=== PATIENT | female | born 1985 | race Caucasian/White ===

== ENCOUNTER 2019-08-23 21:12 | Emergency (ER) | payer MEDICAID, SELFPAY ==
[2019-08-23 21:14] VITALS: BP 165/105; PULSE 99; RESP 22; TEMP 36.5; O2SAT 97
[2019-08-23 21:40] VITALS: O2SAT 96
[2019-08-23] MEDS: ALBUTEROL 2.5 MG/3 ML NEB (ADULT) INH ×3 (21:44→22:54)
--- NOTE | 2019-08-23 21:55 | ED.URI ---
HPI - URI/Sore Throat General Chief Complaint: Upper Respiratory Symptoms Stated Complaint: Asthma attack Time Seen by Provider: 08/23/19 21:55 Source: patient and EMS Limitations: no limitations History of Present Illness HPI Narrative: The patient has allergies and asthma. She has been off her inhaler for about 6 weeks, her inhalers are empty. Symptoms increased over the past 2 weeks. She has had ear discomfort, sinus pressure, cough and sore throat. She has no fever or chills. She is a cigarette smoker, but not over the last 2 weeks while ill. Symptoms escalate again today. She now is having wheezing with increased difficulty breathing. She has no associated chest pain. She has no GI symptoms. Related Data Previous Rx's Medication Instructions Recorded doxycycline hyclate 100 mg PO BID 10 Days #20 tab 08/24/19 prednisone 60 mg PO BID 5 Days #15 tab 08/24/19 Allergies Allergy/AdvReac Type Severity Reaction Status Date / Time No Known Drug Allergies Allergy Verified 08/23/19 21:25 Review of Systems Review of Systems ROS Unobtainable: All systems reviewed & are unremarkable except as noted in HPI and below Constitutional Constitutional: Denies chills, Denies fever(s), Denies headache(s), Denies lethargy and Denies weakness Eyes Eyes: Denies eye discharge ENT Ears, Nose, Mouth, and Throat: Denies dizziness, Denies headache(s), Denies neck pain and Denies sore throat Cardiovascular Cardiovascular: Denies chest pain, Denies irregular heart rhythm, Denies lightheadedness, Denies palpitations, Reports dyspnea and Denies orthopnea Respiratory Respiratory: Reports cough, Reports dyspnea and Reports wheezing Gastrointestinal Gastrointestinal: Denies abdominal pain, Denies diarrhea, Denies nausea and Denies vomiting Musculoskeletal Musculoskeletal: Denies back pain and Denies neck pain Integumentary/Breasts Skin/Breast: Denies pruritus, Denies erythema, Denies rash and Denies wounds Neurologic Neurologic: Denies dizziness, Denies headache(s) and Denies weakness Endocrine Endocrine: Denies palpitations Allergic/Immunologic Allergic/Immunologic: Reports wheezing Patient History Medical History (Updated 08/24/19 @ 00:20 by Carlos Luu MD) Asthma (Acute) Surgical History (Updated 08/24/19 @ 00:16 by Carlos Luu MD) No significant past surgical history (Acute) Social History (Updated 08/24/19 @ 00:16 by Carlos Luu MD) Smoking Status: Current some day smoker Exam Initial Vital Signs Initial Vital Signs: Vital Signs Temperature 97.7 F 08/23/19 21:14 Pulse Rate 99 H 08/23/19 21:14 Respiratory Rate 22 08/23/19 21:14 Blood Pressure 165/105 H 08/23/19 21:14 Pulse Oximetry 97 08/23/19 21:14 Const General: cooperative and well developed Nutritional Appearance: well nourished HENMT Ears: other (Yellow fluid behind both TMs, no erythema.) Nose: nares normal Face and sinus: sinus tenderness ethmoid (Bilateral) Mouth: oral mucosae normal Throat: posterior oropharynx normal Neck Neck: No lymphadenopathy Resp Auscultation: wheezes scattered wheezes (Bilateral) Cardio Rate: regular rate Rhythm: regular rhythm Heart Sounds: S1 normal, S2 normal, no click, no gallops, no murmurs and no rubs Pulses: normal peripheral pulses GI Inspection: non-distended Palpation: soft, no hepatosplenomegaly, No guarding and No tender Auscultation: normal bowel sounds Skin General: no rashes or lesions noted Neuro General: alert, oriented x3, gait normal and no focal motor deficits Speech: speech normal Extrem General: No edema Course Course Course Narrative: The patient has sinus nurse. She was started on doxycycline. She has wheezing throughout. Multiple nebs were given. She was given prednisone. At the time of discharge, cough and wheezing have resolved. She will be discharged on doxycycline, albuterol and prednisone. She is advised to quit smoking. Orders Ordered: Albuterol (Ventolin) 2.5 mg INH NOW PRN PRN Reason: Wheezing Last Admin: 08/23/19 22:54 Dose: 2.5 mg Documented by: Admin: 08/23/19 21:51 Dose: 2.5 mg Documented by: Admin: 08/23/19 21:44 Dose: 2.5 mg Documented by: RAFAT Discontinued Medications Albuterol (Ventolin Hfa Prepack) 1 box MISC SEEINSTR ONE Stop: 08/24/19 00:03 Cefazolin Sodium (Ancef Vial) 2 gm IV NOW ONE Stop: 08/23/19 22:19 Last Admin: 08/23/19 22:53 Dose: Not Given Documented by: KELVIN Doxycycline Hyclate (Vibramycin) 100 mg PO NOW ONE Stop: 08/23/19 22:49 Last Admin: 08/23/19 22:54 Dose: 100 mg Documented by: KELVIN Prednisone (Deltasone) 60 mg PO NOW ONE Stop: 08/23/19 21:57 Last Admin: 08/23/19 22:15 Dose: 60 mg Documented by: KELVIN Vital Signs Vital signs: Vital Signs - 8 hr 08/23/19 21:14 08/23/19 21:40 Temperature 97.7 F Pulse Rate 99 H Respiratory Rate 22 Blood Pressure 165/105 H Pulse Oximetry 97 96 Discharge Plan Departure Patient Disposition: Home Clinical Impression: Sinusitis Qualifiers: Sinusitis location: ethmoidal Chronicity: acute Recurrence: non-recurrent Qualified Code(s): J01.20 - Acute ethmoidal sinusitis, unspecified Asthma Qualifiers: Asthma severity: moderate Asthma persistence: persistent Asthma complication type: unspecified Qualified Code(s): J45.40 - Moderate persistent asthma, uncomplicated Instructions: Asthma -- Adult, DI for Sinusitis Activity Restrictions/Additional Instructions: Doxycycline 2 times daily, this is the antibiotic. Albuterol 2 puffs every 4 hours as needed for wheezing/cough. Prednisone x5 days as prescribed. I recommend you stop smoking. Return the ER as needed. Prescriptions: New doxycycline hyclate 100 mg tablet,delayed release (DR/EC) 100 mg PO BID 10 Days Qty: 20 RF: 0 prednisone 20 mg tablet 60 mg PO BID 5 Days Qty: 15 RF: 0
[2019-08-23] MEDS: predniSONE 20 MG TABLET 60 MG PO (22:15)
[2019-08-23] MEDS: DOXYCYCLINE HYCLATE 100 MG TABLET PO (22:54)
[2019-08-24] MEDS: ALBUTEROL HFA PREPACK 1 BOX MISC (00:21)
[2019-08-24 00:31] VITALS: BP 143/97; PULSE 99; RESP 16; O2SAT 96
--- NOTE | 2019-08-26 16:12 | PC.NURSE ---
[facility]. Discussed w/ Dr. Blount who clarified prescriptions to Prednisone 60 mg po daily x 5 days & Doxycycline 100 mg po bid x 10 days.
== END 2019-08-24 00:31 | disposition home or self-care (01) ==
PROVIDERS: Emergency Provider Emergency Medicine
DX: J01.20 Acute ethmoidal sinusitis, unspecified (principal); J45.40 Moderate persistent asthma, uncomplicated
CPT/HCPCS: 94150; 94640; 99284; J7613

== ENCOUNTER 2019-09-10 18:38 | Inpatient (IN) | payer OTHER, MEDICAID, SELFPAY ==
[2019-09-10] VITALS (10 sets, daily range): BP systolic 147–191; BP diastolic 89–126; PULSE 99–121; RESP 14–28; TEMP 37–37.3; O2SAT 92–96
--- NOTE | 2019-09-10 18:49 | DI.RAD.S_ITS ---
PROCEDURE: XR CHEST 1V INDICATIONS: wheeze, cough, fever TECHNIQUE: One view of the chest was acquired. COMPARISON: None. FINDINGS: Surgical changes and devices: None. Lungs and pleura: Lungs are clear. No pleural effusions or pneumothorax. Mediastinum: Mediastinal contours appear normal. Heart size is normal. Bones and chest wall: No suspicious bony lesions. Overlying soft tissues appear unremarkable. IMPRESSION: No acute disease Dictated by: Capo Cohen M.D. on 09/10/2019 at 20:16 Approved by: Capo Cohen M.D. on 09/10/2019 at 20:16
--- NOTE | 2019-09-10 18:51 | ED.SOB ---
HPI - SOB/Dyspnea General Chief Complaint: Shortness of Breath/Dyspnea Stated Complaint: increased shortness of breath/ wheezing. Time Seen by Provider: 09/10/19 18:38 History of Present Illness HPI Narrative: 34-year-old patient with moderate persistent asthma, anxiety, depression, PTSD, hypertension, and reflux with increasing asthma symptoms over the last week. She was seen in this emergency room on August 23 and diagnosed with acute bacterial ethmoid all sinusitis and treated with prednisone (60 mg for 5 days) and doxycycline for 10 days. She felt that the prednisone made a significant difference. One. Her cough and wheeze has again progressed. She states that she is using her inhalers up to 30 times today and is still quite short of breath. She feels that she has had subjective fevers and chills over the last couple of days. Denies headache, nausea, vomiting, diarrhea. Today she notes that she is having trouble even moving about her trailer due to severe dyspnea. Upon arrival she has received DuoNeb by medics and is able to speak in full sentences. She is using accessory muscles. She notes that she has been smoking very little over the last month because of her respiratory issues. She also notes that she has not taken medications for any of her psychiatric issues normal blood pressure for at least a year. She denies chest pain aside from wheeze, no lower extremity edema, no abdominal pain, flank pain, dysuria. Related Data Home Medications Medication Instructions Recorded Confirmed albuterol sulfate [ProAir HFA] 2 puff INHALATION Q4HR PRN 09/10/19 09/10/19 duloxetine 60 mg PO DAILY 09/10/19 09/10/19 esomeprazole magnesium 40 mg PO DAILY 09/10/19 09/10/19 ipratropium-albuterol [Combivent 1 spray INHALATION QID 09/10/19 09/10/19 Respimat] lisinopril 10 mg PO BID 09/10/19 09/10/19 metformin 500 mg PO QAM 09/10/19 09/10/19 montelukast 10 mg PO BEDTIME 09/10/19 09/10/19 topiramate 50 mg PO BID 09/10/19 09/10/19 Allergies Allergy/AdvReac Type Severity Reaction Status Date / Time Penicillins AdvReac Intermediate Vomiting Verified 02/01/20 18:46 Review of Systems Review of Systems Narrative: States that she had her Mirena taken out about a year ago after 6 months of dysfunctional bleeding. She was given ?something else for a couple months? and the bleeding has stopped. Has not had a period since then. Is not currently sexually active All systems reviewed and are unremarkable except as noted in HPI and below Patient History Medical History Acid reflux (Acute) Anxiety (Acute) Asthma (Acute) Depression (Acute) Hypertension (Acute) Morbid (severe) obesity with alveolar hypoventilation (Acute) PTSD (post-traumatic stress disorder) (Acute) Surgical History No significant past surgical history (Acute) Family History Father Diabetes mellitus Mother Hypertension Arrhythmia Grandfather Colon cancer CAD (coronary artery disease) Social History (Updated 08/24/19 @ 00:16 by Carlos Luu MD) household members: significant other Smoking Status: Current some day smoker Smoking Status: Current some day smoker tobacco type: cigarettes alcohol intake frequency: 0-2 drinks per day Substance Use Type: does not use Exam Narrative Exam Narrative: General: Mild respiratory distress distress. Able to speak in full sentences and give a complete and coherent history. Well-nourished well-developed HEENT: Moist mucous membranes, normal sclera with reactive pupils, Neck: No JVD, supple Respiratory: Lungs with diffuse wheeze in all lung reyes no rales no rhonchi. Diminished but symmetrical air movement Cardiac: Regular rate and rhythm no murmurs no bruits Abdomen: Soft nontender good bowel tones, no flank pain Skin: Warm and dry, no rashes Neurologic: Grossly neurologically intact with no obvious asymmetries or abnormalities Extremities: No trauma, well perfused. No edema Psych: Cooperative, appropriate insight and affect Initial Vital Signs Initial Vital Signs: Vital Signs Temperature 98.9 F 09/10/19 18:38 Pulse Rate 120 H 09/10/19 18:38 Respiratory Rate 28 H 09/10/19 18:38 Blood Pressure 191/126 H 09/10/19 18:38 Pulse Oximetry 95 09/10/19 18:38 Course Course Course Narrative: On initial presentation she is quite wheezy but moving air moderately well. Given a 2nd DuoNeb and then 10 mg of nebulized albuterol. Initial blood pressure is significantly elevated however I suspect that as she hasn't been taking her lisinopril this been going on for a while. As she is currently not having any chest pain will not acutely medicate that further but will follow-up through her emergency room visit Orders Ordered: ED Orders 09/10/19 20:13 Flu test [Influenza A & B (PCR)] Stat 09/10/19 22:19 CT angio chest PE protocol Stat Acetaminophen (Tylenol) 650 mg PO Q6HR PRN PRN Reason: Fever/Mild Pain (1-3) Albuterol (Ventolin) 2.5 mg INH RTQ4HR [facility] Last Admin: 09/11/19 02:22 Dose: 2.5 mg Documented by: ANUSHA Albuterol/Ipratropium (Duoneb) 3 ml INH Q4HR [facility] Last Admin: 09/11/19 03:52 Dose: 3 ml Documented by: ANUSHA Heparin Sodium (Porcine) (Heparin) 5,000 unit SUBCUT BID [facility] Last Admin: 09/11/19 01:13 Dose: 5,000 unit Documented by: SCOUT Sodium Chloride (Normal Saline 0.45%) 1,000 mls @ 150 mls/hr IV CONT [facility] Last Admin: 09/11/19 02:14 Dose: 150 mls/hr Documented by: SCOUT Lisinopril (Zestril) 10 mg PO BID [facility] Last Admin: 09/11/19 03:45 Dose: 10 mg Documented by: SCOUT Methylprednisolone (Solu-Medrol 125 Mg Vial) 125 mg IV DAILY [facility] Stop: 09/12/19 08:59 Naloxone HCl (Narcan) 0.2 mg IV Q2MIN PRN PRN Reason: Opiate Reversal Ondansetron HCl (Zofran) 4 mg IV Q8HR PRN PRN Reason: Nausea And Vomiting Discontinued Medications Albuterol (Ventolin) 10 mg INH NOW ONE Stop: 09/10/19 18:59 Last Admin: 09/10/19 19:01 Dose: 10 mg Documented by: CARLOS Albuterol (Ventolin) 2.5 mg INH NOW ONE Stop: 09/10/19 22:03 Last Admin: 09/10/19 22:06 Dose: 2.5 mg Documented by: ANUSHA Albuterol (Ventolin) 2.5 mg INH [id number] SAIGE Albuterol/Ipratropium (Duoneb) 3 ml INH NOW ONE Stop: 09/10/19 18:48 Last Admin: 09/10/19 18:53 Dose: 3 ml Documented by: CARLOS Albuterol/Ipratropium (Duoneb) 3 ml INH RTBID SAIGE Sodium Chloride (Normal Saline 0.9%) 1,000 mls @ 1,000 mls/hr IV BOLUS ONE Stop: 09/10/19 19:46 Last Infusion: 09/10/19 20:00 Dose: 0 mls/hr Documented by: Admin: 09/10/19 18:55 Dose: 1,000 mls/hr Documented by: SUNSHINE Methylprednisolone (Solu-Medrol 125 Mg Vial) 125 mg IV NOW ONE Stop: 09/10/19 18:48 Last Admin: 09/10/19 18:55 Dose: 125 mg Documented by: SUNSHINE Vital Signs Vital signs: Vital Signs - 8 hr 09/10/19 21:15 09/10/19 21:26 09/10/19 22:06 Temperature 98.6 F Pulse Rate 109 H 115 H Respiratory Rate 20 Blood Pressure [Left Arm] 180/98 H Pulse Oximetry 92 95 09/10/19 22:47 Temperature Pulse Rate 121 H Respiratory Rate Blood Pressure [Left Arm] 147/89 H Pulse Oximetry 93 MDM - SOB/Dyspnea Differential Diagnosis Differential diagnosis: Likely asthma with exacerbation Medical Records Attestation: I reviewed the patient's medical records. Lab Data Attestation: I reviewed the patient's lab results. Result diagrams: 09/10/19 19:32 09/10/19 19:32 Labs: Lab Results 09/10/19 09/10/19 09/10/19 Range/Units 19:06 19:32 19:32 WBC 10.7 (4.5-11.0) X10^3/uL RBC 4.88 (4.0-5.2) X10^6/uL Hgb 16.0 (12.0-16.0) g/dL Hct 45.2 (36-46) % MCV 92.6 (80-100) fL MCH 32.8 (26-34) PG MCHC 35.5 (30-36) % RDW 13.2 (11.6-14.8) % Plt Count 252 (150-400) X10^3/uL Neut % (Auto) 70.9 (50-75) % Lymph % (Auto) 14.9 L (25-40) % Ray % (Auto) 5.3 (3-14) % Eos % (Auto) 8.2 H (2-4) % Baso % (Auto) 0.7 (0-2) % Neut # (Auto) 7600 H (4668-6675) /uL Lymph # (Auto) 1600 (2679-2885) /uL Ray # (Auto) 600 (0-900) /uL Eos # (Auto) 900 H (0-450) /uL Baso # (Auto) 100 (0-100) /uL D-Dimer 331 H (<230) ng/mL ABG pH 7.40 (7.35-7.45) ABG pCO2 35.0 (35-45) mmHg ABG pO2 60 L (80-100) mmHg ABG HCO3 22 (22-26) mmol/L ABG Total CO2 23 (21-31) mmol/L ABG O2 Saturation 91 L (95-100) % ABG Base Excess -3.0 L (-2-2) mmol/L FiO2 21 Sodium (137-145) mmol/L Potassium (3.4-5.1) mmol/L Chloride (98-107) mmol/L Carbon Dioxide (22-32) mmol/L BUN (7-17) mg/dL Creatinine (0.52-1.04) mg/dL Estimated GFR (>60) mL/min BUN/Creatinine Ratio (6-22) Glucose (70-100) mg/dL Lactate (0.7-2.1) mmol/L Calcium (8.4-10.2) mg/dL Total Bilirubin (0.2-1.3) mg/dL AST (14-36) IU/L ALT (<35) IU/L Alkaline Phosphatase (38-126) U/L Troponin I (0.01-0.034) ng/mL Total Protein (6.3-8.2) g/dL Albumin (3.5-5.0) g/dL Globulin (1.7-4.1) g/dL Albumin/Globulin Ratio (1.0-2.8) Influenza A (RT-PCR) (NEGATIVE) Influenza B (RT-PCR) (NEGATIVE) 09/10/19 09/10/19 09/10/19 Range/Units 19:32 19:32 20:13 WBC (4.5-11.0) X10^3/uL RBC (4.0-5.2) X10^6/uL Hgb (12.0-16.0) g/dL Hct (36-46) % MCV (80-100) fL MCH (26-34) PG MCHC (30-36) % RDW (11.6-14.8) % Plt Count (150-400) X10^3/uL Neut % (Auto) (50-75) % Lymph % (Auto) (25-40) % Ray % (Auto) (3-14) % Eos % (Auto) (2-4) % Baso % (Auto) (0-2) % Neut # (Auto) (5085-9841) /uL Lymph # (Auto) (8715-4792) /uL Ray # (Auto) (0-900) /uL Eos # (Auto) (0-450) /uL Baso # (Auto) (0-100) /uL D-Dimer (<230) ng/mL ABG pH (7.35-7.45) ABG pCO2 (35-45) mmHg ABG pO2 (80-100) mmHg ABG HCO3 (22-26) mmol/L ABG Total CO2 (21-31) mmol/L ABG O2 Saturation (95-100) % ABG Base Excess (-2-2) mmol/L FiO2 Sodium 138 (137-145) mmol/L Potassium 3.6 (3.4-5.1) mmol/L Chloride 102 (98-107) mmol/L Carbon Dioxide 25 (22-32) mmol/L BUN 6 L (7-17) mg/dL Creatinine 0.80 (0.52-1.04) mg/dL Estimated GFR > 60.0 (>60) mL/min BUN/Creatinine Ratio 7.5 (6-22) Glucose 132 H (70-100) mg/dL Lactate 1.4 (0.7-2.1) mmol/L Calcium 9.5 (8.4-10.2) mg/dL Total Bilirubin 0.8 (0.2-1.3) mg/dL AST 27 (14-36) IU/L ALT 23 (<35) IU/L Alkaline Phosphatase 75 (38-126) U/L Troponin I < 0.012 (0.01-0.034) ng/mL Total Protein 8.4 H (6.3-8.2) g/dL Albumin 4.8 (3.5-5.0) g/dL Globulin 3.6 (1.7-4.1) g/dL Albumin/Globulin Ratio 1.3 (1.0-2.8) Influenza A (RT-PCR) Flu a negative (NEGATIVE) Influenza B (RT-PCR) Flu b negative (NEGATIVE) ABG Data ABG results: PH is 7.4/CO2 35/0-60 (91%) on room air/ base excess -3/bicarb 22 Imaging Data Chest x-ray: Attestation: I personally reviewed and interpreted this imaging study as follows: Radiologist's Impression: IMPRESSION: No acute disease Dictated by: Capo Cohen M.D. on 09/10/2019 at 20:16 CT scan - chest: Attestation: I personally reviewed and interpreted this imaging study as follows: Radiologist's Impression: Dr. Martin, radiology interpretation: [address] angiogram of the chest to negative for pulmonary embolism incidental right pericardial 8 mm lymph node, normal lungs MDM Narrative Medical decision making narrative: Patient with significant asthma exacerbation. She has already been on a course of antibiotics for a presumed sinus infection parentheses no current sinus symptoms at this time end parentheses increased wheeze and mild hypoxia in the 90-91% on room air range. She has been using multiple puffs of her inhaler at home to no avail. After 2 duo nebs and 10 mg of nebulized albuterol she still has significant wheeze throughout all lung reyes. At this point I a.m. going to recommend hospital admission for more frequent nebulizer treatments steroids fluids and monitoring to see if she is developing pneumonia. At this point with a normal white count and no infiltrates on her chest x-ray no rhonchi on her clinical exam I am not going to treat her for pneumonia Her D-dimer has just returned slightly elevated at 331. Given her level of hypoxia with the wheeze but still able to speak in full sentences will moved to CT scan to rule out pulmonary embolism. Discharge Plan Departure Patient Disposition: Admitted as Observation Clinical Impression: Asthma Qualifiers: Asthma severity: moderate Asthma persistence: unspecified Asthma complication type: with acute exacerbation Qualified Code(s): J45.901 - Unspecified asthma with (acute) exacerbation Hypertension Qualifiers: Hypertension type: essential hypertension Qualified Code(s): I10 - Essential (primary) hypertension Diabetes Qualifiers: Diabetes mellitus type: type 2 Diabetes mellitus retirement insulin use: without retirement use Diabetes mellitus complication status: without complication Qualified Code(s): E11.9 - Type 2 diabetes mellitus without complications Discharge Date/Time: 09/11/19 00:56 Admit Date/Time: 09/11/19 00:03 Admit Provider: Maryellen Cohen
[2019-09-10] MEDS: ALBUTEROL/IPRATROPIUM 3 ML AMPUL INH (18:53)
[2019-09-10] MEDS: methylPREDNISolone 125 MG/2 ML VIAL IV (18:55)
[2019-09-10] MEDS: SODIUM CHLORIDE 0.9% 1,000 ML 1000 ML IV (18:55)
[2019-09-10] MEDS: ALBUTEROL 2.5 MG/3 ML NEB (ADULT) 10 MG INH (19:01)
[2019-09-10 19:28] LABS: HCO3 ABG 22 mmol/L (22-26); PO2 ABG 60 mmHg (80-100)
[2019-09-10 19:29] LABS: Fractionated Inspired Oxygen 21; Oxygen Saturation ABG 91 % (95-100); TCO2 ABG 23 mmol/L (21-31)
[2019-09-10 20:04] LABS: Lactate (Lactic Acid) 1.4 mmol/L (0.7-2.1)
[2019-09-10 20:06] LABS: Alanine Aminotransferase 23 IU/L (<35); Albumin 4.8 g/dL (3.5-5.0); Albumin Globulin Ratio 1.3 (1.0-2.8); Alkaline Phosphatase 75 U/L (38-126); Aspartate Aminotransferase 27 IU/L (14-36); BUN Creatinine Ratio 7.5 (6-22); Bilirubin Total 0.8 mg/dL (0.2-1.3); Blood Urea Nitrogen 6 mg/dL (7-17); Calcium 9.5 mg/dL (8.4-10.2); Carbon Dioxide 25 mmol/L (22-32); Chloride 102 mmol/L (98-107); Estimated Glomerular Filt Rate > 60.0 mL/min (>60); Globulin 3.6 g/dL (1.7-4.1); Glucose 132 mg/dL (70-100); HEMOLYSIS < 15 (0-50); Potassium 3.6 mmol/L (3.4-5.1); Sodium 138 mmol/L (137-145); Total Protein 8.4 g/dL (6.3-8.2)
[2019-09-10 20:08] LABS: D Dimer 331 ng/mL (<230)
[2019-09-10 20:09] LABS: Add Manual Diff / Slide Review NO; Basophils Absolute Auto 100 /uL (0-100); Basophils Percent Auto 0.7 % (0-2); Eosinophils Absolute Auto 900 /uL (0-450); Eosinophils Percent Auto 8.2 % (2-4); Hematocrit 45.2 % (36-46); Lymphocytes Absolute Auto 1600 /uL (1100-4500); Lymphocytes Percent Auto 14.9 % (25-40); Mean Corpuscular HGB Conc 35.5 % (30-36); Mean Corpuscular Hemoglobin 32.8 PG (26-34); Mean Corpuscular Volume 92.6 fL (80-100); Monocytes Absolute Auto 600 /uL (0-900); Monocytes Percent Auto 5.3 % (3-14); Neutrophils Absolute Auto 7600 /uL (1500-7000); Neutrophils Percent Auto 70.9 % (50-75); Platelet Count 252 X10^3/uL (150-400); Red Blood Cell Count 4.88 X10^6/uL (4.0-5.2); Red Cell Distribution Width 13.2 % (11.6-14.8); White Blood Cell Count 10.7 X10^3/uL (4.5-11.0)
[2019-09-10 20:16] LABS: Troponin I < 0.012 ng/mL (0.01-0.034)
[2019-09-10 20:55] LABS: Influenza A - CEPHEID Flu A NEGATIVE (NEGATIVE); Influenza B - CEPHEID Flu B NEGATIVE (NEGATIVE)
[2019-09-10] MEDS: ALBUTEROL 2.5 MG/3 ML NEB (ADULT) INH (22:06)
--- NOTE | 2019-09-10 22:19 | DI.CT.S_ITS ---
PROCEDURE: CT ANGIO CHEST PE PROTOCOL INDICATIONS: elevated d-dimer, dyspnea, wheeze TECHNIQUE: After the administration of intravenous contrast, 2 mm thick sections acquired from the pulmonary apices to the posterior costophrenic angles. 3-dimensional maximum intensity projection (MIP) coronal and sagittal reformats were then acquired through the thorax. For radiation dose reduction, the following was used: automated exposure control, adjustment of mA and/or kV according to patient size. COMPARISON: None. FINDINGS: Image quality: Excellent. Pulmonary arteries: Pulmonary arteries are normal in size, and demonstrate no intraluminal filling defects to suggest central pulmonary embolism. Lungs and pleura: Mild scattered bronchial thickening. Mild scattered peribronchial ground glass and reticulonodular densities. No pleural effusions or pneumothorax. Central and peripheral airways are patent. Mediastinum: Heart size is normal, without pericardial effusion. No mediastinal or hilar adenopathy. Thoracic aorta is normal in caliber and enhancement. Esophagus is normal in caliber, without hiatal hernia. Bones and chest wall: No suspicious bony lesions. Ribs and thoracic spine appear intact throughout. Thyroid gland is within normal limits. No axillary or supraclavicular adenopathy. Abdomen: Visualized upper abdominal solid organs appear normal in the early arterial phase of enhancement. IMPRESSION: 1. No evidence of pulmonary embolus. 2. Mild bronchopneumonia. Dictated by: Micheline Amezcua M.D. on 09/11/2019 at 7:38 Approved by: Micheline Amezcua M.D. on 09/11/2019 at 7:41
[2019-09-11] VITALS (21 sets, daily range): BP systolic 134–167; BP diastolic 86–113; PULSE 98–120; RESP 14–28; TEMP 36.3–37.1; O2SAT 92–97; BMI 42.3
--- NOTE | 2019-09-11 00:57 | P.HP_ITS ---
History of Present Illness History of Present Illness Date Patient Seen: 09/11/19 Time Patient Seen: 23:30 Chief complaint: Asthma exacerbation, acute respiratory failure Narrative: Kristin Barksdale is a 34-year-old female with a history of asthma since she was in her early 20s, hearing loss, bilateral optic neuropathy, PTSD, and depression presented to the emergency department with a complaint of shortness of breath. She states that she had to stop smoking around the 04 of September and has been increasingly getting more and more short of breath. She is short of breath particularly with activity but also with rest. The patient complained of having an itchy face and having more allergic type symptoms in addition to subjective fever and sweats, chest pain associated with shortness of breath, nausea, 1 time episode of diarrhea, and feeling like her he art is racing. She had previously been using inhalers however it has been almost a year since she has been on any of her medications. She states that she tends to drop her medical care during August and September due to profound seasonal depression she has at that time. Her boyfriend accompanies her and they both live in a 5th wheel and have to move every 3 weeks from one park to another, both are close by. Patient History Medical History Acid reflux (Acute) Anxiety (Acute) Asthma (Acute) Depression (Acute) Hypertension (Acute) Morbid (severe) obesity with alveolar hypoventilation (Acute) PTSD (post-traumatic stress disorder) (Acute) Surgical History No significant past surgical history (Acute) Family & Social History Family History Father Diabetes mellitus Mother Hypertension Arrhythmia Grandfather Colon cancer CAD (coronary artery disease) Safety & Behavioral: Feels Safe in Current Yes Environment Been Physically Hurt or No Threatened By a Person Tobacco & Substance use: Smoking Status Current some day smoker alcohol intake frequency 0-2 drinks per day Substance Use Type does not use Meds Home Medications and Allergies Home Medications Medication Instructions Recorded Confirmed Type albuterol sulfate [ProAir HFA] 2 puff INHALATION Q4HR PRN 09/10/19 09/10/19 History duloxetine 60 mg PO DAILY 09/10/19 09/10/19 History esomeprazole magnesium 40 mg PO DAILY 09/10/19 09/10/19 History ipratropium-albuterol [Combivent 1 spray INHALATION QID 09/10/19 09/10/19 History Respimat] lisinopril 10 mg PO BID 09/10/19 09/10/19 History metformin 500 mg PO QAM 09/10/19 09/10/19 History montelukast 10 mg PO BEDTIME 09/10/19 09/10/19 History topiramate 50 mg PO BID 09/10/19 09/10/19 History Allergies Allergy/AdvReac Type Severity Reaction Status Date / Time Penicillins AdvReac Intermediate Vomiting Verified 09/10/19 18:46 Review of Systems Review of Systems ROS: Yes All systems reviewed with the patient and are negative except as otherwise documented Exam Vital Signs (past 8 hours): - 09/10/19 18:38 09/10/19 18:54 09/10/19 19:02 Temperature 98.9 F Pulse Rate 120 H 108 H 99 H Respiratory Rate 28 H 14 14 Blood Pressure 191/126 H Blood Pressure [Left Arm] Pulse Oximetry 95 96 94 09/10/19 19:03 09/10/19 20:05 09/10/19 20:08 Temperature 99.1 F Pulse Rate 108 H 114 H Respiratory Rate 27 H Blood Pressure Blood Pressure [Left Arm] 182/97 H Pulse Oximetry 95 93 09/10/19 21:15 09/10/19 21:26 09/10/19 22:06 Temperature 98.6 F Pulse Rate 109 H 115 H Respiratory Rate 20 Blood Pressure Blood Pressure [Left Arm] 180/98 H Pulse Oximetry 92 95 09/10/19 22:47 09/11/19 00:45 Temperature Pulse Rate 121 H 107 H Respiratory Rate 28 H Blood Pressure Blood Pressure [Left Arm] 147/89 H 154/86 H Pulse Oximetry 93 92 Oxygen Delivery Method Room Air Narrative Exam Narrative: Gen: Alert, oriented, morbidly obese 34 y.o. female, has almost a child-like affect HEENT: normocephalic, atraumatic, conjunctiva clear, sclera non-icteric, oral mucosa pink and moist Neck: supple, full ROM Resp: Lungs with wheezes and rhonchi throughout all lung reyes, tachypneic CV: RRR, no murmur or rubs Abd: Obese, soft, non-tender, normoactive BTs Skin: no lesions or rashes, dry and intact Neuro: Alert and oriented X 4 w/no focal deficits Extremities: moves all 4 extremities, is ambulatory, negative Sugey?s sign Psyche: normal mood and affect. Objective Labs Result Diagrams: 09/10/19 19:32 09/10/19 19:32 Labs: Laboratory Results - last 24 hr 09/10/19 09/10/19 09/10/19 19:06 19:32 19:32 WBC 10.7 RBC 4.88 Hgb 16.0 Hct 45.2 MCV 92.6 MCH 32.8 MCHC 35.5 RDW 13.2 Plt Count 252 Neut % (Auto) 70.9 Lymph % (Auto) 14.9 L [place] % (Auto) 5.3 Eos % (Auto) 8.2 H Baso % (Auto) 0.7 Neut # (Auto) 7600 H Lymph # (Auto) 1600 [place] # (Auto) 600 Eos # (Auto) 900 H Baso # (Auto) 100 D-Dimer 331 H ABG pH 7.40 ABG pCO2 35.0 ABG pO2 60 L ABG HCO3 22 ABG Total CO2 23 ABG O2 Saturation 91 L ABG Base Excess -3.0 L FiO2 21 Sodium Potassium Chloride Carbon Dioxide BUN Creatinine Estimated GFR BUN/Creatinine Ratio Glucose Lactate Calcium Total Bilirubin AST ALT Alkaline Phosphatase Troponin I Total Protein Albumin Globulin Albumin/Globulin Ratio Influenza A (RT-PCR) Influenza B (RT-PCR) 09/10/19 09/10/19 09/10/19 19:32 19:32 20:13 WBC RBC Hgb Hct MCV MCH MCHC RDW Plt Count Neut % (Auto) Lymph % (Auto) [place] % (Auto) Eos % (Auto) Baso % (Auto) Neut # (Auto) Lymph # (Auto) [place] # (Auto) Eos # (Auto) Baso # (Auto) D-Dimer ABG pH ABG pCO2 ABG pO2 ABG HCO3 ABG Total CO2 ABG O2 Saturation ABG Base Excess FiO2 Sodium 138 Potassium 3.6 Chloride 102 Carbon Dioxide 25 BUN 6 L Creatinine 0.80 Estimated GFR > 60.0 BUN/Creatinine Ratio 7.5 Glucose 132 H Lactate 1.4 Calcium 9.5 Total Bilirubin 0.8 AST 27 ALT 23 Alkaline Phosphatase 75 Troponin I < 0.012 Total Protein 8.4 H Albumin 4.8 Globulin 3.6 Albumin/Globulin Ratio 1.3 Influenza A (RT-PCR) Flu a negative Influenza B (RT-PCR) Flu b negative Assessment & Plan Assessment & Plan narrative: Kristin Barksdale will be placed in observation tonight for further management of h er acute asthma exacerbation and to the sister in the morning with mobilizing health and mental health resources for her. 1. Sepsis secondary to asthma exacerbation and acute respiratory failure with a lactate of 4.1, left shift, ABG oxygen saturation of 91%, tachypnea and hypertension. Acute, present on admission * She received 1 L bolus of normal saline in the ED and will be continued on 0.45 normal saline at 150 mL/hour. Repeat lactate x4 hours. * RT to treat and evaluate with alternating doses of DuoNebs and albuterol q.2 hours as needed for shortness of breath and wheezing * She received 1 dose of Solu-Medrol 125 mg IV in the ED. She will receive more 1 more dose in the morning and transition over to oral prednisone after that. 2. Probable obesity related hypoventilation syndrome, suspected, present on admission * See 1. * She may require another ABG to make sure she is not retaining CO2, initial ABG did not indicate hypercapnia. 3. History of hypertension, acute, present on admission * Monitor overnight and resume lisinopril if necessary 4. History of diabetes type 2 verses PCOS with elevated glucose at 132, present on admission * Patient denies having diabetes so question whether not she was put on metformin for amenorrhea and or PCOS * Hemoglobin A1c will be ordered 5. Depression/PTSD, chronic * Patient previously was on duloxetine 60 mg p.o. daily, she has not been on these medications for a year and should be resumed after consultation with her PCP and or a mental health provider. * Social work/discharge planning consult to help secure primary in mental health services in the community. Her last PCP was in [facility] and her last mental health provider was in [facility]. FEN: 0.45 NS at 150 mL/hour, regular diet, chemistries in the am Patient is placed into observation as her stay is not likely to exceed 2 midnights. VTE Prophylaxis: Heparin 5000 units b.i.d. subcu Medications reconciled: Yes Disposition: Likely discharge to home in 1 to 2 days Code Status: Full code
[2019-09-11] MEDS: HEPARIN 5,000 UNIT/ML VIAL 5000 UNIT SUBCUT ×3 (01:13→20:38)
[2019-09-11 01:55] LABS: Lactate (Lactic Acid) 4.1 mmol/L (0.7-2.1)
[2019-09-11] MEDS: SODIUM CHLORIDE 0.45% 1,000 ML 150 ML IV (02:14)
[2019-09-11] MEDS: ALBUTEROL 2.5 MG/3 ML NEB (ADULT) INH ×5 (02:22→15:27)
--- NOTE | 2019-09-11 02:31 | PC.NURSE ---
Admitted to room 213 Diagnosed with exacerbation of Asthma. Pt. A&OX4 denies any SOB RA 94%, denies any pain on admission. Still noted fint wheezing bilateral upper lobes & decrease breath sound in the bases. Hypertensive 167/111, tachy HR. 111. LUIS Cohen notified no new order receive. Also notified with Lactate result of 4.1, order to repeat Lactate level @ 0500. Will cont. POC & monitor.
[2019-09-11 03:14] LABS: Reflexed Lactate in 2 Hours Y
--- NOTE | 2019-09-11 03:40 | PC.NURSE ---
02 saturation 90-91% in RA, 2 liters / initiated & SPO2 94-95%. LUIS Cohen ordered 10 mg. of Lisinopril now, will implement order & monitor.
[2019-09-11] MEDS: lisinopriL 10 MG TABLET PO ×3 (03:45→20:38)
[2019-09-11] MEDS: ALBUTEROL/IPRATROPIUM 3 ML AMPUL INH ×3 (03:52→20:15)
[2019-09-11 05:23] LABS: Add Manual Diff / Slide Review NO; Basophils Absolute Auto 0 /uL (0-100); Basophils Percent Auto 0.2 % (0-2); Eosinophils Absolute Auto 0 /uL (0-450); Eosinophils Percent Auto 0.1 % (2-4); Hematocrit 40.6 % (36-46); Hemoglobin 14.1 g/dL (12.0-16.0); Lymphocytes Absolute Auto 600 /uL (1100-4500); Lymphocytes Percent Auto 7.4 % (25-40); Mean Corpuscular HGB Conc 34.8 % (30-36); Mean Corpuscular Hemoglobin 32.3 PG (26-34); Mean Corpuscular Volume 92.9 fL (80-100); Monocytes Absolute Auto 100 /uL (0-900); Monocytes Percent Auto 1.1 % (3-14); Neutrophils Absolute Auto 6800 /uL (1500-7000); Neutrophils Percent Auto 91.2 % (50-75); Platelet Count 264 X10^3/uL (150-400); Red Blood Cell Count 4.37 X10^6/uL (4.0-5.2); Red Cell Distribution Width 12.9 % (11.6-14.8); White Blood Cell Count 7.5 X10^3/uL (4.5-11.0)
[2019-09-11 05:28] LABS: Lactate (Lactic Acid) 2.7 mmol/L (0.7-2.1)
[2019-09-11 05:30] LABS: Blood Urea Nitrogen 7 mg/dL (7-17); Calcium 9.5 mg/dL (8.4-10.2); Carbon Dioxide 20 mmol/L (22-32); Chloride 104 mmol/L (98-107); Estimated Glomerular Filt Rate > 60.0 mL/min (>60); Glucose 199 mg/dL (70-100); HEMOLYSIS < 15 (0-50); Potassium 3.7 mmol/L (3.4-5.1); Sodium 136 mmol/L (137-145)
[2019-09-11 07:14] LABS: Reflexed Lactate in 2 Hours Y
[2019-09-11 08:05] LABS: Lactate 2HR (Lactic Acid Rflx) 2.3 mmol/L (0.7-2.1)
[2019-09-11 08:32] LABS: Hemoglobin A1C% w Est Avg Glu 4.9 % (4.0-6.0)
[2019-09-11] MEDS: methylPREDNISolone 125 MG/2 ML VIAL IV (08:39)
[2019-09-11 08:52] LABS: Procalcitonin < 0.05 ng/mL (<0.5)
[2019-09-11] MEDS: ACETAMINOPHEN 325 MG TABLET 650 MG PO ×2 (09:11→20:39)
[2019-09-11] MEDS: AZITHROMYCIN 500 MG in DEXTROSE 5% IN WATER 250 ML IV (09:12)
[2019-09-11] MEDS: ONDANSETRON 4 MG/2 ML INJ IV (10:33)
--- NOTE | 2019-09-11 12:25 | CM.DANOTE ---
DCP: Case received, EMR reviewed and met with patient. Introduced self and role. Mother , also at bedside. Was able to converse with patient and obtain some history, baseline activity level, as well as living situation. DCP assessment completed with information currently available. Patient is a 34 year old female who admitted early this morning to the care of the hospitalist team. PCP: No provider. Payer: uninsured, did have [employer], was inactivated. Admission counselor will see patient today. Patient came to the hospital via ambulance secondary to exacerbated asthma, difficulty breathing. Patient resides in a 5th wheel with her significant other, Annalisa Brown. Patient also has history of PTSD/depression. Patient had been insured , but was dropped. Met with patient in her room. Her mother was present as well. Patient is originally from [place], where her PCP used to be. She mentioned that she did have [employer] at one time, but was dropped due to not having adequate mail box. She stated that her significant, Sebastien, now has a P.O. box to retrieve mail. She is independent, unemployed, and does not drive. She has no children. She mentioned that it has been challenging to get her medications due to the cost. Confirmed that she does not take Metformin for diabetes, but as hormone replacement. She also uses inhalers. She is a smoker as well. An e-mail was sent to admission counselors from [facility]. Confirmed from e-mail that they will see her today. Updated patient that admission counselor will be up to see her, and can assist her in reinstating her insurance. This high risk case manager gave her a phone number for the [facility] here in [place], for it was recently noted that they are taking new patients. They also accept some [facility] plans. Gave patient a print out of medications at [facility] and some costs. P: DCP to continue to follow and be of assistance with any resources. Will see what admission counselor is able to help patient with as far as applying for insurance, and for zaid fund if needed. Estefania Johnson RN/Tonsorial Artist
--- NOTE | 2019-09-11 14:58 | PT.IIE ---
Addendum entered and electronically signed by Linette Etienne PT 09/11/19 15:00: Sitting before activity: BP 158/97; HR 116; SpO2 94% on 2L/min After ambulation: BP: 135/97; HR 116; SpO2 95% on 2L/min Original Note: Surgical History (Last Reviewed 09/11/19 @ 01:28 by LUIS Tolbert) No significant past surgical history (Acute) Medical History (Last Reviewed 09/11/19 @ 01:28 by LUIS Tolbert) Acid reflux (Acute) Anxiety (Acute) Asthma (Acute) Depression (Acute) Hypertension (Acute) Morbid (severe) obesity with alveolar hypoventilation (Acute) PTSD (post-traumatic stress disorder) (Acute) Physical Therapy Inpatient Evaluation/Re-Eval M1 PT/OT-IP Prior Functional Status Start: 09/11/19 09:49 Freq: NEEDED Status: Active Protocol: Document 09/11/19 14:37 AW (Rec: 09/11/19 14:58 AW [id number]) Medical Review Prior Functional Status Medical History Reviewed Yes Diet/Fluid Consistency Regular Communication WNL. Effective verbal communicator Mobility and Gait Pt used no assistive device but did limit her ambulation to household distances primarily due to worsening shortness of breath and fatigue. Activities of Daily Living and IADL's Pt reports she was independent with dressing and toileting but required extra time and frequent rest breaks due to breathing difficulty. She states she showers on a very limited basis since she needs to be breathing well in order to tolerate the shower. Prior Functional Level (Other details) Pt has optic neuropathy which affects her vision especially in bright light. She has not driven since October 2018 due to this condition. Social History Household Members significant other Living Arrangements Mobile home Number of Floors (Floors) One Floor Number of Stairs To Enter/Railing? 3 AAYUSH with handle mounted on external wall of 5th wheel trailer for support Home Environment Standard Height Toilet,Walk in Shower,Built-In Shower Seat Employment Status Unemployed Additional Social History Comment Pt lives with her boyfriend, Sebastien, who works >40 hours per week. They live in a 5th- wheel trailer and must move every 3 weeks. Her parents live in [place]. M2 PT-IP Current Condition Start: 09/11/19 09:49 Freq: NEEDED Status: Active Protocol: Document 09/11/19 14:37 AW (Rec: 09/11/19 14:58 AW [id number]) Physical Therapy Current Condition Current Condition Evaluation Date 09/11/19 Treatment Diagnosis asthma exacerbation, impaired activity tolerance Onset Date 09/11/19 Precautions Other Precautions Pt on 2L O2 via NC Weight Bearing Status Weight Bearing Status Full Weight Bearing M3 PT-IP Subjective Start: 09/11/19 09:49 Freq: NEEDED Status: Active Protocol: Document 09/11/19 14:37 AW (Rec: 09/11/19 14:58 AW [id number]) Subjective Physical Therapy Visit Type Type Initial Evaluation Visit Start Time 14:01 Visit Stop Time 14:27 Total Visit Minutes 26 Physical Therapy Visit Comments Patient Comments Pt willing to work with PT Patient Goals To go home. Therapy Pain Assessment Pain When Pain Assessed At Rest Pain Present Pain Present Pain Reported Location Sacrum Scale Used pain not quantified Pain Behaviors Restlessness Pain Management Techniques Re-positioning M4 PT-IP Mobility and Gait Start: 09/11/19 09:49 Freq: NEEDED Status: Active Protocol: Document 09/11/19 14:37 AW (Rec: 09/11/19 14:58 AW [id number]) PT-Bed Mobility Assessment Supine to Sit Supine to Sit Independent Scooting Scooting to Edge of Bed Independent PT-Transfer Assessment Sit to and From Stand Sit to and from Stand Independent Equipment Transfer Assistive Device None,Gait Belt Transfers Transfer Destination Chair Transfer Technique pt ambulated without AD Transfer Ability Level of Assist Independent Comments Mobility Comments Pt was sitting up in bed upon PT arrival. She transferred to EOB and then to bedside chair independently after donning her socks. She sat in the chair with and without UE support for MMT. She stood and ambulated in the halls SBA before returning to the chair SBA. Gait Assessment Gait Gait Assistance Required: Standby Assistance Distance (Feet) 150 Able to Maintain Weight Bearing Status Yes During Gait Assistive Devices Assistive Device None,Gait Belt Orthotic/Prosthetic Devices or Brace: Yes Gait Deviations General Gait Pattern Decreased Stride Length, Decreased Feet Clearance,Wide Based Gait Factors Limiting Gait Function Factors Limiting Gait Function Decreased Strength,Pain, Respiratory Distress Comments Gait Comments Pt amulated in the hallway without AD SBA, reporting mild shortness of breath on 2L O2 via NC. SpO2 maintained 94-97% throughout treatment. Stair Climbing Assessment Comments Stair Climbing Comments Not assessed. PT-Balance Assessment Sitting Balance and Reactions Static Sitting Balance Ability Good Dynamic Sitting Balance Ability Good Standing Balance and Reactions Static Standing Balance Ability Good Dynamic Standing Balance Ability Good Device Used none M5 PT-IP Objective Assessments Start: 09/11/19 09:49 Freq: NEEDED Status: Active Protocol: Document 09/11/19 14:37 AW (Rec: 09/11/19 14:58 AW [id number]) Orientation Orientation/Cognition Level of Alertness Alert Orientation Name,Date,Day of Week,Place, Situation Language Function Ability No Deficits Noted Safety Awareness Understands Safety Issues Memory Description No Deficits Noted Gross Range of Motion Lower Extremity ROM Assessment Within Functional Limits Strength Lower Extremity Strength Hip 4/5 Knee 4-/5 Ankle 4+/5 Coordination Assessment Gross Coordination Gross Coordination WNL Sensation Assessment Sensation Gross Sensation WNL Comments Sensation Comments Pt reports occasional R 5th toe numbness. M6 PT-IP Treatment Start: 09/11/19 09:49 Freq: NEEDED Status: Active Protocol: Document 09/11/19 14:37 AW (Rec: 09/11/19 14:58 AW [id number]) Physical Therapy Treatment Education Education Provided Precautions,Safety Other Treatments Other Treatment Performed Provided education on role of PT, plan of care, and safety navigating with her vision impairments. M7 PT-IP Assessment and Plan Start: 09/11/19 09:49 Freq: NEEDED Status: Active Protocol: Document 09/11/19 14:37 AW (Rec: 09/11/19 14:58 AW [id number]) PT Summary Assessment and Plan Potential Rehabilitation Potential Good Status of Condition at Evaluation Stable Summary Impairments Pain,Strength,Balance,Gait, Activity Tolerance Assessment Summary Kristin is a 34 yo woman seen for PT evaluation after being admitted with acute asthma exacerbation. She lives in a 5th wheel trailer with her boyfriend who works >40 hours per week. She reports she was independent for household mobility and extremely limited community mobility without AD ; limits were secondary to shortness of breath and fatigue. She was also independent with dressing and toileting but required frequent rest breaks. Showers had become infrequent due to poor tolerance related to her breathing. On evaluation, she was independent for bed mobility and transfers, SBA for gait without AD up to 150 feet. She maintained SpO2 94- 97% on 2L/min via NC. PT recommends discharge to home environment once medically cleared. Goals Transfer Goal Independent Gait Goal Independent Gait Distance 6 minutes on room air, maintaining >88% SpO2 Other Goals - up/down 3 steps with unilteral hand rail SBA Days to Meet Goals 2 Frequency of Treatment Frequency Of Treatment Once a Day Treatment Plan Physical Therapy Treatment Plan Gait Training,Therapeutic Exercise,Balance Retraining, Discharge Planning,Hot or Cold Pack,Neuromuscular Re-ed Other Recommendations and Next Treatment 6 Minute Walk Test tracking VS Focus and RPE; assess safety on stairs Recommendations To Nursing Amount of Assist Needed Independent Discharge Recommendations PT Discharge Recommendations Home with Assistance Transportation Needs at Discharge Private Vehicle
--- NOTE | 2019-09-11 15:41 | PM.PN.1 ---
Subjective Subjective Date Patient Seen: 09/11/19 Exam Vital Signs (past 8 hours): - 09/11/19 08:00 09/11/19 09:33 09/11/19 09:44 Temperature 97.5 F L Pulse Rate 101 H 112 H 110 H Respiratory Rate 20 18 14 Blood Pressure 156/92 H Pulse Oximetry 94 97 97 09/11/19 11:31 09/11/19 13:14 09/11/19 13:54 Temperature 98.1 F Pulse Rate 120 H 110 H 116 H Respiratory Rate 18 18 20 Blood Pressure 135/97 H Pulse Oximetry 95 93 95 Oxygen Delivery Method Nasal Cannula Oxygen Flow Rate 0 Objective Labs Result Diagrams: 09/11/19 05:05 09/11/19 05:05 Labs: Laboratory Results - last 24 hr 09/10/19 09/10/19 09/10/19 19:06 19:32 19:32 WBC 10.7 RBC 4.88 Hgb 16.0 Hct 45.2 MCV 92.6 MCH 32.8 MCHC 35.5 RDW 13.2 Plt Count 252 Neut % (Auto) 70.9 Lymph % (Auto) 14.9 L [place] % (Auto) 5.3 Eos % (Auto) 8.2 H Baso % (Auto) 0.7 Neut # (Auto) 7600 H Lymph # (Auto) 1600 [place] # (Auto) 600 Eos # (Auto) 900 H Baso # (Auto) 100 D-Dimer 331 H ABG pH 7.40 ABG pCO2 35.0 ABG pO2 60 L ABG HCO3 22 ABG Total CO2 23 ABG O2 Saturation 91 L ABG Base Excess -3.0 L FiO2 21 Sodium Potassium Chloride Carbon Dioxide BUN Creatinine Estimated GFR BUN/Creatinine Ratio Glucose Hemoglobin A1c Lactate Calcium Magnesium Total Bilirubin AST ALT Alkaline Phosphatase Troponin I Total Protein Albumin Globulin Albumin/Globulin Ratio Procalcitonin Influenza A (RT-PCR) Influenza B (RT-PCR) 09/10/19 09/10/19 09/10/19 19:32 19:32 20:13 WBC RBC Hgb Hct MCV MCH MCHC RDW Plt Count Neut % (Auto) Lymph % (Auto) [place] % (Auto) Eos % (Auto) Baso % (Auto) Neut # (Auto) Lymph # (Auto) [place] # (Auto) Eos # (Auto) Baso # (Auto) D-Dimer ABG pH ABG pCO2 ABG pO2 ABG HCO3 ABG Total CO2 ABG O2 Saturation ABG Base Excess FiO2 Sodium 138 Potassium 3.6 Chloride 102 Carbon Dioxide 25 BUN 6 L Creatinine 0.80 Estimated GFR > 60.0 BUN/Creatinine Ratio 7.5 Glucose 132 H Hemoglobin A1c Lactate 1.4 Calcium 9.5 Magnesium Total Bilirubin 0.8 AST 27 ALT 23 Alkaline Phosphatase 75 Troponin I < 0.012 Total Protein 8.4 H Albumin 4.8 Globulin 3.6 Albumin/Globulin Ratio 1.3 Procalcitonin Influenza A (RT-PCR) Flu a negative Influenza B (RT-PCR) Flu b negative 09/11/19 09/11/19 09/11/19 01:10 05:05 05:05 WBC 7.5 RBC 4.37 Hgb 14.1 Hct 40.6 MCV 92.9 MCH 32.3 MCHC 34.8 RDW 12.9 Plt Count 264 Neut % (Auto) 91.2 H D Lymph % (Auto) 7.4 L [place] % (Auto) 1.1 L Eos % (Auto) 0.1 L Baso % (Auto) 0.2 Neut # (Auto) 6800 Lymph # (Auto) 600 L [place] # (Auto) 100 Eos # (Auto) 0 Baso # (Auto) 0 D-Dimer ABG pH ABG pCO2 ABG pO2 ABG HCO3 ABG Total CO2 ABG O2 Saturation ABG Base Excess FiO2 Sodium 136 L Potassium 3.7 Chloride 104 Carbon Dioxide 20 L BUN 7 Creatinine 0.70 Estimated GFR > 60.0 BUN/Creatinine Ratio 10.0 Glucose 199 H Hemoglobin A1c Lactate 4.1 H* Calcium 9.5 Magnesium Total Bilirubin AST ALT Alkaline Phosphatase Troponin I Total Protein Albumin Globulin Albumin/Globulin Ratio Procalcitonin Influenza A (RT-PCR) Influenza B (RT-PCR) 09/11/19 09/11/19 09/11/19 05:05 07:49 08:21 WBC RBC Hgb Hct MCV MCH MCHC RDW Plt Count Neut % (Auto) Lymph % (Auto) [place] % (Auto) Eos % (Auto) Baso % (Auto) Neut # (Auto) Lymph # (Auto) [place] # (Auto) Eos # (Auto) Baso # (Auto) D-Dimer ABG pH ABG pCO2 ABG pO2 ABG HCO3 ABG Total CO2 ABG O2 Saturation ABG Base Excess FiO2 Sodium Potassium Chloride Carbon Dioxide BUN Creatinine Estimated GFR BUN/Creatinine Ratio Glucose Hemoglobin A1c Lactate 2.7 H 2.3 H Calcium Magnesium 2.0 Total Bilirubin AST ALT Alkaline Phosphatase Troponin I Total Protein Albumin Globulin Albumin/Globulin Ratio Procalcitonin Influenza A (RT-PCR) Influenza B (RT-PCR) 09/11/19 09/11/19 08:21 08:26 WBC RBC Hgb Hct MCV MCH MCHC RDW Plt Count Neut % (Auto) Lymph % (Auto) [place] % (Auto) Eos % (Auto) Baso % (Auto) Neut # (Auto) Lymph # (Auto) [place] # (Auto) Eos # (Auto) Baso # (Auto) D-Dimer ABG pH ABG pCO2 ABG pO2 ABG HCO3 ABG Total CO2 ABG O2 Saturation ABG Base Excess FiO2 Sodium Potassium Chloride Carbon Dioxide BUN Creatinine Estimated GFR BUN/Creatinine Ratio Glucose Hemoglobin A1c 4.9 Lactate Calcium Magnesium Total Bilirubin AST ALT Alkaline Phosphatase Troponin I Total Protein Albumin Globulin Albumin/Globulin Ratio Procalcitonin < 0.05 Influenza A (RT-PCR) Influenza B (RT-PCR) Assessment & Plan Assessment & Plan narrative: Brief progress note: Patient seen and examined. Patient is hemodynamically stable. Physical exam unchanged other than lungs slightly diminished but clear to auscultation bilaterally without wheeze, rhonchi or crackles. Discontinued methylprednisolone and placed patient on prednisone 40 mg daily for 3 additional days to complete a 5 day burst of glucocorticoids to start tomorrow. Discontinued scheduled nebs and made nebs only as needed. Placed patient on inhaled corticosteroid for increase in stepwise therapy and could consider combination with LABA as patient is already on montelukast 10 mg daily at bedtime. Ordered azithromycin 500 mg x 3 doses for pulmonary anti-inflammatory effect. Discussed in detail smoking cessation of both tobacco and marijuana and available smoking cessation aids for which she plans to discuss with her PCP and initiate in the near future. Plan to have RT design an asthma action plan prior to discharge. Recommended pulmonary function testing to assure that patient solely has asthma and no other obstructive or restrictive process, as well as, referral to pulmonology for evaluation and treatment. Agree with admitting providers assessment and plan other than the patient was not septic and did not meet sepsis criteria. Also add problem: #2 Acute lactic acidosis, secondary to acute hypoxemic respiratory failure from asthma exacerbation, present on admission. Resolving. -Patient presented with significant wheezing requiring continuous nebs and IV methylprednisolone with oxygen saturations in the low 90's on 2L supplemental oxygen and possibly lower prior to arrival. -Continue supplemental oxygen as necessary to maintain oxygen saturation 88-92%. Titrate off of oxygen as tolerated. Currently on 2 L. -Treat underlying asthma exacerbation as above under problem #1. Quality VTE Deep Vein Thrombosis/Pulmonary Embolism Present on Admission: No
[2019-09-11 17:19] LABS: Adenovirus Not Detected (Not Detect); Bordetella pertussis Not Detected (Not Detect); Chlamydophila pneumoniae Not Detected (Not Detect); Coronavirus 229E Not Detected (Not Detect); Coronavirus HKU1 Detected (Not Detect); Coronavirus NL 63 Not Detected (Not Detect); Coronavirus OC43 Not Detected (Not Detect); Human Metapneumovirus Not Detected (Not Detect); Human Rhinovirus/Enterovirus Not Detected (Not Detect); Influenza A Not Detected (Not Detect); Influenza B Not Detected (Not Detect); Mycoplasma pneumoniae Not Detected (Not Detect); Parainfluenza Virus 1 Not Detected (Not Detect); Parainfluenza Virus 2 Not Detected (Not Detect); Parainfluenza Virus 3 Not Detected (Not Detect); Parainfluenza Virus 4 Not Detected (Not Detect); Respiratory Syncytial Virus Not Detected (Not Detect)
--- NOTE | 2019-09-11 18:05 | PC.NURSE ---
Addendum entered by Inocencia Eldridge R.N. 09/11/19 22:44: Resting quietly in bed on right side. Continuous pulse oximeter in place with room air saturation level 93%. Pt has waffle cushion to buttocks for c/o chronic tailbone pain. Droplet precautions in place. Addendum entered by Inocencia Eldridge R.N. 09/11/19 19:17: Pt showered as per request. States didn't feel short of breath until drying self. Is dyspneic with activity. Room air saturation level checked 92%. Exp wheezes right posterior reyes and diminished left posterior reyes. Able to perform own ADL's. Taking oral fluids well. Using I.S. to 2000 with each commercial per pt statement. Original Note: Pt sitting on edge of bed with S.O. present in room. Oxygen removed per Dr. Block. Room air 92%. Diminished breath sounds throughout all posterior reyes with slight inspiratory wheeze right upper lobe. Pt is warm to touch and anxious. States effects of nebs and steroids. Swabbed for respiratory panel as per Dr. Block. Results shared with and MD has shared with pt. Senior Systems Architect, Gisselle, denise pt tested positive for [id number]. Droplet precautions initiated.
[2019-09-11] MEDS: SODIUM CHLORIDE 0.9% FLUSH 10 ML IV (19:30)
[2019-09-12] VITALS (9 sets, daily range): BP systolic 133–153; BP diastolic 84–100; PULSE 78–101; RESP 18–20; TEMP 36.5–36.7; O2SAT 93–96
[2019-09-12] MEDS: ALBUTEROL/IPRATROPIUM 3 ML AMPUL INH ×5 (00:06→20:18)
--- NOTE | 2019-09-12 02:21 | PC.NURSE ---
Addendum entered by Yuko Juarez R.N. 09/12/19 03:26: Addition to previous note: bed alarm is not in use as PT has cleared patient to be independent Original Note: 0030 Patient is alert and oriented. Chronic problems with seeing in bright light. Is [place] so wears bilateral hearing aids. Breath sounds audibly wheezy after being up to bathroom and has both inspiratory and expiratory wheezes throughout posteriorly. Denies feeling SOB. Has intermittent non productive cough. RA sat is 95% and is on continuous pulse oximetry. HRR. BP is elevated at 149/100 and has been consistently elevated. Does admit to some slight nausea but denies need for antiemetic. BT present and is passing flatus. Independent with mobility although did instruct patient to call for assistance when getting out of bed if having difficulty seeing; verbalizes understanding. Bruising noted on abdomen likely from Lovenox injections. Complains of chronic coccyx pain related to previous injury and states currently is 4/10 pressure but declines offer of pain medication; no bruising noted. Fall risk score is moderate. Is on droplet isolation due to coronovirus.
[2019-09-12] MEDS: ALPRAZolam 0.5 MG TABLET PO ×3 (09:35→21:43)
[2019-09-12] MEDS: lisinopriL 10 MG TABLET PO ×2 (09:35→20:04)
[2019-09-12] MEDS: HEPARIN 5,000 UNIT/ML VIAL 5000 UNIT SUBCUT ×2 (09:35→20:04)
[2019-09-12] MEDS: predniSONE 20 MG TABLET 40 MG PO (09:35)
--- NOTE | 2019-09-12 10:49 | PT.IPTN ---
Current Diagnoses Acute respiratory failure with hypoxia (09/11/19) Physical Therapy Treatment Note M2 PT-IP Current Condition Start: 09/11/19 09:49 Freq: NEEDED Status: Active Protocol: Document 09/11/19 14:37 AW (Rec: 09/11/19 14:58 AW [id number]) Physical Therapy Current Condition Current Condition Evaluation Date 09/11/19 Treatment Diagnosis asthma exacerbation, impaired activity tolerance Onset Date 09/11/19 Precautions Other Precautions Pt on 2L O2 via NC Weight Bearing Status Weight Bearing Status Full Weight Bearing M3 PT-IP Subjective Start: 09/11/19 09:49 Freq: NEEDED Status: Active Protocol: Document 09/12/19 10:49 CLB (Rec: 09/12/19 11:43 CLB [id number]) Subjective Physical Therapy Visit Type Type Treatment Note Visit Start Time 10:49 Visit Stop Time 11:06 Total Visit Minutes 17 Number of TRACK MACHINE OPERATOR REPAIRER Visits 1 Physical Therapy Visit Comments Patient Comments Pt willing to work with PT M4 PT-IP Mobility and Gait Start: 09/11/19 09:49 Freq: NEEDED Status: Active Protocol: Document 09/12/19 10:49 CLB (Rec: 09/12/19 11:43 CLB [id number]) PT-Bed Mobility Assessment Scooting Scooting to Edge of Bed Independent PT-Transfer Assessment Sit to and From Stand Sit to and from Stand Independent Equipment Transfer Assistive Device None,Gait Belt Transfers Transfer Destination Bed Transfer Technique pt ambulated without AD Transfer Ability Level of Assist Independent Comments Mobility Comments Pt sitting up in bed upon arrival. Pt donned socks while sitting in bed then stood from bed independently. Pt ambulated in bull then returned to bed Independently. Left pt in bed with all needs within reach. Gait Assessment Gait Gait Assistance Required: Standby Assistance Distance (Feet) 500 Able to Maintain Weight Bearing Status Yes During Gait Assistive Devices Assistive Device None,Gait Belt Orthotic/Prosthetic Devices or Brace: Yes Gait Deviations General Gait Pattern Decreased Stride Length, Decreased Feet Clearance,Wide Based Gait Factors Limiting Gait Function Factors Limiting Gait Function Decreased Strength,Pain, Respiratory Distress Comments Gait Comments SP02 on RA before ambulation 92%. Pt ambulated SBA w/o AD ~ 500ft. Pt ambulated to therapy steps, performed stair training SP02 on RA after stair training 94%. Pt then ambulated to [facility] SP02 remained 94%, once pt returned to room pt had maintained SP02 of 94% . Pt required four standing rest breaks for recovery during ambulation due to mild SOB. Stair Climbing Assessment Evaluation Level of Assist On Stairs Standby Assistance Devices Stair Climbing Assistive Devices Left Railing Technique/Endurance Stair Climbing Direction Ascend and Descend Stair Climbing Technique Step Over Step Number of Steps Climbed 3 Stair Climbing Set # Repetitions (reps) 2 Comments Stair Climbing Comments Pt able to climb steps with left rail and step over technique. PT-Balance Assessment Sitting Balance and Reactions Static Sitting Balance Ability Good Dynamic Sitting Balance Ability Good Standing Balance and Reactions Static Standing Balance Ability Good Dynamic Standing Balance Ability Good Device Used none M5 PT-IP Objective Assessments Start: 09/11/19 09:49 Freq: NEEDED Status: Active Protocol: Document 09/11/19 14:37 AW (Rec: 09/11/19 14:58 AW [id number]) Orientation Orientation/Cognition Level of Alertness Alert Orientation Name,Date,Day of Week,Place, Situation Language Function Ability No Deficits Noted Safety Awareness Understands Safety Issues Memory Description No Deficits Noted Gross Range of Motion Lower Extremity ROM Assessment Within Functional Limits Strength Lower Extremity Strength Hip 4/5 Knee 4-/5 Ankle 4+/5 Coordination Assessment Gross Coordination Gross Coordination WNL Sensation Assessment Sensation Gross Sensation WNL Comments Sensation Comments Pt reports occasional R 5th toe numbness. M6 PT-IP Treatment Start: 09/11/19 09:49 Freq: NEEDED Status: Active Protocol: Document 09/11/19 14:37 AW (Rec: 09/11/19 14:58 AW [id number]) Physical Therapy Treatment Education Education Provided Precautions,Safety Other Treatments Other Treatment Performed Provided education on role of PT, plan of care, and safety navigating with her vision impairments. M7 PT-IP Assessment and Plan Start: 09/11/19 09:49 Freq: NEEDED Status: Active Protocol: Document 09/12/19 10:49 CLB (Rec: 09/12/19 11:43 CLB [id number]) PT Summary Assessment and Plan Potential Rehabilitation Potential Good Status of Condition at Evaluation Stable Summary Impairments Pain,Strength,Balance,Gait, Activity Tolerance Assessment Summary Pt is independent with bed mobility and sit-stand, pt required SBA for gait in [place] w/o AD. Pt required standing rest breaks due to mild SOB during ambulation, SP02 on RA ranged from 92-94% during tx. Pt able to d/c home when medically stable. Goals Transfer Goal Independent Gait Goal Independent Gait Distance 6 minutes on room air, maintaining >88% SpO2 Other Goals - up/down 3 steps with unilteral hand rail SBA Days to Meet Goals 2 Frequency of Treatment Frequency Of Treatment Once a Day Treatment Plan Physical Therapy Treatment Plan Gait Training,Therapeutic Exercise,Balance Retraining, Discharge Planning,Hot or Cold Pack,Neuromuscular Re-ed Recommendations To Nursing Amount of Assist Needed Independent Discharge Recommendations PT Discharge Recommendations Home with Assistance Transportation Needs at Discharge Private Vehicle
[2019-09-12] MEDS: AZITHROMYCIN 500 MG in DEXTROSE 5% IN WATER 250 ML 125 ML IV (12:09)
[2019-09-12] MEDS: SODIUM CHLORIDE 0.9% FLUSH 10 ML IV ×2 (12:10→20:18)
[2019-09-12] MEDS: DULOXETINE 30 MG CAPSULE 60 MG PO (12:16)
--- NOTE | 2019-09-12 12:20 | CM.DANOTE ---
Addendum entered by Chey Lopez 09/12/19 13:42: [facility] brochure provided to RN for mental health follow up as outpatient. Original Note: DCP/Continued: Reviewed chart. Received call from patient that she has updated her medical plan. Patient currently on [employer]. Emailed to admission counselor. P: Home when stable. [facility] Discharge Planning/Care Management CM Discharge Assessment Start: 09/11/19 12:23 Freq: Status: Active Protocol: Document 09/11/19 12:24 (Rec: 09/11/19 12:34 [id number]) Discharge Planning Assessment Advance Directives? No Advance Directives on File No History Provided By Patient,Medical Record Prior Living Arrangements Mobile home Comment Her and significant other travel in 5th wheel Household Members significant other Type of transporation used prior to Relies on Others admit Comment Patient is no longer driving Willing to Return to Facility? No Independent with ADL's Yes Is patient alert and oriented? Yes Caregiver for Another No Barriers to Discharge Yes Comment Patient has no insurance, was deactivated, and unable to afford some meds. She will be seeing admissions counselor today Discharge Plan Home Transportation Arrangement Mother or significant other Whiteboard Updated in Patient Room with Yes name and ext. # of Customer Service Teller Review Status In Process Next Review Type Continued Stay Review 09/11/19 12:25 CM Disch. Assessment Note by Estefania Johnson DCP: Case received, EMR reviewed and met with patient. Introduced self and role. Mother , also at bedside. Was able to converse with patient and obtain some history, baseline activity level, as well as living situation. DCP assessment completed with information currently available. Patient is a 34 year old female who admitted early this morning to the care of the hospitalist team. PCP: No provider. Payer: uninsured, did have [employer], was inactivated. Admission counselor will see patient today. Patient came to the hospital via ambulance secondary to exacerbated asthma, difficulty breathing. Patient resides in a 5th wheel with her significant other, Sound Clipsalessia. Patient also has history of PTSD/depression. Patient had been insured , but was dropped. Met with patient in her room. Her mother was present as well. Patient is originally from [facility] where her PCP used to be. She mentioned that she did have [employer] at one time, but was dropped due to not having adequate mail box. She stated that her significant, Sebastien, now has a P.O. box to retrieve mail. She is independent, unemployed, and does not drive. She has no children. She mentioned that it has been challenging to get her medications due to the cost. Confirmed that she does not take Metformin for diabetes, but as hormone replacement. She also uses inhalers. She is a smoker as well. An e-mail was sent to admission counselors from [facility]. Confirmed from e-mail that they will see her today. Updated patient that admission counselor will be up to see her, and can assist her in reinstating her insurance. This caseworker intake gave her a phone number for the [facility] here in [place], for it was recently noted that they are taking new patients. They also accept some [facility] plans. Gave patient a print out of medications at [facility] and some costs. P: DCP to continue to follow and be of assistance with any resources. Will see what admission counselor is able to help patient with as far as applying for insurance, and for zaid fund if needed. Estefania Johnson RN/Board Setter Initialized on 09/11/19 12:25 - END OF NOTE Document 09/12/19 12:19 KJS (Rec: 09/12/19 12:20 KJS [id number]) Discharge Planning Assessment Assigned Customer Service Teller [facility] Advance Directives? No Advance Directives on File No History Provided By Patient,Medical Record Prior Living Arrangements Mobile home Comment Her and significant other travel in 5th wheel Household Members significant other Type of transporation used prior to Relies on Others admit Comment Patient is no longer driving Willing to Return to Facility? No Independent with ADL's Yes Is patient alert and oriented? Yes Caregiver for Another No Barriers to Discharge Yes Comment Patient has no insurance, was deactivated, and unable to afford some meds. She will be seeing admissions counselor today Discharge Plan Home Transportation Arrangement Mother or significant other Whiteboard Updated in Patient Room with Yes name and ext. # of Customer Service Teller Review Status In Process Next Review Type Continued Stay Review
--- NOTE | 2019-09-12 13:34 | PC.NURSE ---
Day Shift Alerted by CYBER OPS PLANNER that pt was extremely anxious. Pt has been receiving steroids, nebs and has a history of depression and anxiety. Reports she hasn't been taking her meds since january. Reports she self medicates with marijuana daily. Notified MD and order for xanax placed. Pt took and she stated she felt much calmer. She was relaxed and no longer tearful in the afternoon. Will continue to monitor.
--- NOTE | 2019-09-12 17:44 | PM.PN.1 ---
Subjective Subjective Date Patient Seen: 09/12/19 Time Patient Seen: 09:00 Interval history: Ms Barksdale is a 34-year-old female with past medical history asthma, PTSD, depression who is admitted for asthma exacerbation. She is seen for follow-up today. She denies any fevers or chills or night. She does complain of shortness of breath on exertion, but not at rest. She is still slightly wheezy this morning and this afternoon. She still is quite anxious today. She was restarted on her SSRIs that she did obtain unsure is coverage retroactive to September 10, and she will require refills of her medications upon discharge, which is expected to be tomorrow given improvement since admission. Exam Vital Signs (past 8 hours): - 09/12/19 13:00 09/12/19 15:20 09/12/19 15:41 Temperature 97.7 F 98.1 F Pulse Rate 94 H 101 H 96 H Respiratory Rate 18 18 20 Blood Pressure 148/95 H 153/93 H Pulse Oximetry 94 96 94 Oxygen Delivery Method Room Air Oxygen Flow Rate 0 Narrative Exam Narrative: GENERAL APPEARANCE: Obese female, Well developed, well nourished, appears mildly anxious SKIN: Inspection of the skin reveals no rashes, ulcerations or petechiae. HEENT: The sclerae were anicteric and conjunctivae were pink and moist. Extraocular movements were intact and pupils were equal, round with normal accommodation. External inspection of the ears and nose showed no scars, lesions, or masses. Lips, teeth, and gums showed normal mucosa. The oral mucosa, hard and soft palate, tongue and posterior pharynx were unremarkable. NECK: Supple and symmetric. There was no thyroid enlargement, and no tenderness, or masses were felt. CHEST: Normal AP diameter and normal contour without any kyphoscoliosis. LUNGS: Auscultation of the lungs poor air movement, with mild expiratory wheezing diffusely. No rhonchi or rales bilaterally. CARDIOVASCULAR: There was a regular rate and rhythm without any murmurs, gallops, rubs. Peripheral pulses were 2+ and symmetric. ABDOMEN: Soft and nontender with normal bowel sounds. No ascites was noted. MUSCULOSKELETAL: There was no tenderness or effusions noted. Muscle strength and tone were normal. EXTREMITIES: No cyanosis, clubbing or edema. NEUROLOGIC: Alert and oriented x 3. Normal affect. Gait was normal. Strength is +5/5 in the Upper Extremities and Lower Extremities Bilaterally. Sensation to touch was normal. Objective Labs Result Diagrams: 09/11/19 05:05 09/11/19 05:05 Assessment & Plan Assessment & Plan narrative: Kristin Barksdale will be placed in observation tonight for further management of her acute asthma exacerbation and to the sister in the morning with mobilizing health and mental health resources for her. 1. asthma exacerbation and acute respiratory failure - Acute, present on admission She received 1 L bolus of normal saline in the ED and will be continued on 0.45 normal saline at 150 mL/hour. Repeat lactate x4 hours. ABG oxygen saturation of 91%, tachypnea and hypertension. RT to treat and evaluate with alternating doses of DuoNebs and albuterol q.2 hours as needed for shortness of breath and wheezing She received 1 dose of Solu-Medrol 125 mg IV in the ED. She is now transition to oral prednisone and she will complete a 5 day total course of steroids. Will complete 3 total day course of azithromycin Placed patient on inhaled corticosteroid for increase in stepwise therapy and could consider combination with LABA as patient is already on montelukast 10 mg daily at bedtime. 2. Acute lactic acidosis, secondary to acute hypoxemic respiratory failure from asthma exacerbation, present on admission. Resolved. -Patient presented with significant wheezing requiring continuous nebs and IV methylprednisolone with oxygen saturations in the low 90's on 2L supplemental oxygen and possibly lower prior to arrival. -Continue supplemental oxygen as necessary to maintain oxygen saturation 88-92%. Titrate off of oxygen as tolerated. Currently on 2 L. -Treat underlying asthma exacerbation as above under problem 3. History of hypertension, acute, present on admission Monitor overnight and resume lisinopril if necessary 4. History of diabetes type 2 with elevated glucose at 132, present on admission, diabetes now ruled out. Patient denies having diabetes so question whether not she was put on metformin for amenorrhea and or PCOS A1c was 4.9% this admission 5. Depression/PTSD, chronic Patient previously was on duloxetine 60 mg p.o. daily, she has not been on these medications for a year and will be resumed today given that patient discontinue this medication for insurance purposes and she now again has insurance. Social work/discharge planning consult to help secure primary in mental health services in the community. Her last PCP was in [facility] and her last mental health provider was in [facility]. Patient remains observation status at this time VTE Prophylaxis: Heparin 5000 units b.i.d. subcu Disposition: Likely discharge to home in 1 to 2 days, but anticipate tomorrow as the most likely day. Code Status: Full code Quality VTE Deep Vein Thrombosis/Pulmonary Embolism Present on Admission: No
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
[2019-09-12] MEDS: MONTELUKAST 10 MG TABLET PO (20:04)
[2019-09-12] MEDS: FLUTICASONE 110MCG HFA 120 PUFF INH (20:18)
[2019-09-12] MEDS: ACETAMINOPHEN 325 MG TABLET 650 MG PO (21:43)
[2019-09-13 00:45] VITALS: BP 140/81; PULSE 78; RESP 18; TEMP 36.8; O2SAT 97
--- NOTE | 2019-09-13 01:48 | PC.NURSE ---
0045 Patient is alert and oriented. [place] and uses bilateral hearing aids. Eyes very sensitive to lights. Breath sounds coarse with expiratory wheezes throughout posteriorly; RA sat 97%. Placed on continuous oximetry as per MD order. States she does get SOB with exertion but not at rest. Continues with intermittent, dry, non productive cough. HRR with BP still elevated at 140/81. Admits to nausea when asked but denies need for antiemetic. BT hypoactive; abdomen is soft. Independent with mobility. Up to bathroom to urinate; denies dysuria, frequency or urgency. Does complain of 4/10 headache but declines offer of pain medication. Remains in droplet isolation as still symptomatic from coronavirus. Fall risk score is moderate but has been cleared by PT for independent ambulation so no bed alarm is being used.
[2019-09-13] MEDS: ALPRAZolam 0.5 MG TABLET PO ×2 (06:53→14:22)
[2019-09-13] MEDS: FLUTICASONE 110MCG HFA 120 PUFF INH (07:51)
[2019-09-13] MEDS: ALBUTEROL/IPRATROPIUM 3 ML AMPUL INH ×2 (07:51→13:06)
[2019-09-13 08:00] VITALS: BP 138/84; PULSE 85; RESP 12; TEMP 36.4; O2SAT 93
[2019-09-13 08:10] VITALS: PULSE 91; RESP 18; O2SAT 93
[2019-09-13 08:11] VITALS: O2SAT 94
--- NOTE | 2019-09-13 10:21 | PT-IP ANOTE ---
Pt has been mobilizing independently and maintaining SpO2 on room air with ambulation SBA. She is clear of PT needs. PT will complete the order.
[2019-09-13] MEDS: DULOXETINE 30 MG CAPSULE 60 MG PO (10:33)
[2019-09-13] MEDS: SODIUM CHLORIDE 0.9% FLUSH 10 ML IV ×2 (10:33→12:16)
[2019-09-13] MEDS: AZITHROMYCIN 500 MG in DEXTROSE 5% IN WATER 250 ML IV (10:33)
[2019-09-13] MEDS: HEPARIN 5,000 UNIT/ML VIAL 5000 UNIT SUBCUT (10:34)
[2019-09-13] MEDS: predniSONE 20 MG TABLET 40 MG PO (10:34)
[2019-09-13] MEDS: lisinopriL 10 MG TABLET PO (10:34)
[2019-09-13] MEDS: SODIUM CHLORIDE 0.9% 250 ML 21 ML IV (10:35)
--- NOTE | 2019-09-13 10:59 | P.DS_ITS ---
History of Present Illness History of Present Illness Date Patient Seen: 09/13/19 Time Patient Seen: 08:30 Chief complaint: Asthma exacerbation, acute respiratory failure Narrative: As per LUIS Tolbert: Kristin Barksdale is a 34-year-old female with a history of asthma since she was in her early 20s, hearing loss, bilateral optic neuropathy, PTSD, and depression presented to the emergency department with a complaint of shortness of breath. She states that she had to stop smoking around the 04 of September and has been increasingly getting more and more short of breath. She is short of breath particularly with activity but also with rest. The patient complained of having an itchy face and having more allergic type symptoms in addition to subjective fever and sweats, chest pain associated with shortness of breath, nausea, 1 time episode of diarrhea, and feeling like her heart is racing. She had previously been using inhalers however it has been almost a year since she has been on any of her medications. She states that she tends to drop her medical care during August and September due to profound seasonal depression she has at that time. Her boyfriend accompanies her and they both live in a 5th wheel and have to move every 3 weeks from one RV park to another, both are close by. Discharge Providers Provider Date of admission: 09/11/19 00:03 Discharge Date: 09/13/19 Consults: 09/11/19 00:51 Consult to Discharge Planning Routine Comment: Needs PCP and mental health referrals 09/11/19 08:17 Consult to Physical Therapy Evaluate & Treat Comment: Physician Instructions: Evaluate and Treat Discharge provider: Nikos Bell DO Summary Hospital Course Discharge Diagnosis: 1. asthma exacerbation and acute respiratory failure - Acute, present on admission, improved 2. Acute lactic acidosis, secondary to acute hypoxemic respiratory failure from asthma exacerbation, present on admission. Resolved. 3. History of hypertension, acute, present on admission 4. History of diabetes type 2 with elevated glucose at 132, present on admission, diabetes now ruled out with A1c of 4.9% 5. Depression/PTSD, chronic Hospital Course: Kristin Barksdale will be placed in observation tonight for further management of her acute asthma exacerbation and to the sister in the morning with mobilizing health and mental health resources for her. 1. asthma exacerbation and acute respiratory failure - Acute, present on admission, improved She received 1 L bolus of normal saline in the ED and will be continued on 0.45 normal saline at 150 mL/hour. Repeat lactate was improved. ABG oxygen saturation of 91%, tachypnea and hypertension. Patient was treated with nebulizers and improved symptomatically. She completed a 3 day course of azithromycin as well as 4 doses of steroids. She is to complete therapy tomorrow at home with 1 last dose of prednisone 40 mg. Placed patient on inhaled corticosteroid for increase in stepwise therapy and could consider combination with LABA as patient is already on montelukast 10 mg daily at bedtime as an outpatient. 2. Acute lactic acidosis, secondary to acute hypoxemic respiratory failure from asthma exacerbation, present on admission. Resolved. -Patient presented with significant wheezing requiring continuous nebs and IV methylprednisolone with oxygen saturations in the low 90's on 2L supplemental oxygen and possibly lower prior to arrival. -Lactate resolved with treatment including IV fluids. 3. History of hypertension, acute, present on admission 4. History of diabetes type 2 with elevated glucose at 132, present on admission, diabetes now ruled out with A1c of 4.9% She did have hyperglycemia secondary to steroids. - outpatient follow up with PMD. 5. Depression/PTSD, chronic Patient previously was on duloxetine 60 mg p.o. daily, she has not been on these medications for a year and will be resumed today given that patient discontinue this medication for insurance purposes and she now again has insurance. Social work/discharge planning consult to help secure primary in mental health services in the community. Her last PCP was in [facility] and her last mental health provider was in [facility]. Status at Discharge Overall status at discharge: patient is back to baseline Time Spent with Patient Time spent: Less than 30 minutes Exam Vital Signs (past 8 hours): - 09/13/19 08:00 09/13/19 08:10 09/13/19 08:11 Temperature 97.5 F L Pulse Rate 85 91 H Respiratory Rate 12 18 Blood Pressure 138/84 Pulse Oximetry 93 93 94 Oxygen Delivery Method Room Air Oxygen Flow Rate 0 Narrative Exam Narrative: GENERAL APPEARANCE: Obese female, Well developed, well nourished, in no acute distress. SKIN: Inspection of the skin reveals no rashes, ulcerations or petechiae. HEENT: The sclerae were anicteric and conjunctivae were pink and moist. Extraocular movements were intact and pupils were equal, round with normal accommodation. External inspection of the ears and nose showed no scars, lesions, or masses. Lips, teeth, and gums showed normal mucosa. The oral mucosa, hard and soft palate, tongue and posterior pharynx were unremarkable. NECK: Supple and symmetric. There was no thyroid enlargement, and no tenderness, or masses were felt. CHEST: Normal AP diameter and normal contour without any kyphoscoliosis. LUNGS: Auscultation of the lungs revealed no wheezes, rhonchi, or rales. CARDIOVASCULAR: There was a regular rate and rhythm without any murmurs, gallops, rubs. Peripheral pulses were 2+ and symmetric. ABDOMEN: Soft and nontender with normal bowel sounds. No ascites was noted. MUSCULOSKELETAL: There was no tenderness or effusions noted. Muscle strength and tone were normal. EXTREMITIES: No cyanosis, clubbing or edema. NEUROLOGIC: Alert and oriented x 3. Normal affect. Gait was normal. Strength is +5/5 in the Upper Extremities and Lower Extremities Bilaterally. Sensation to touch was normal. Objective Labs Result Diagrams: 09/11/19 05:05 09/11/19 05:05 Discharge Plan Discharge Plan Patient Disposition: Home Discharge comment: You were admitted to the hospital with an asthma exacerbation. This was due to a rockwell virus (not the new one in the news). You improved with steroids and a short course of antibiotics. You are to complete one additional day of prednisone tomorrow. You were also started on a controller medication for your asthma. Your also restarted on your home medications. Please reestablish care with a primary care provider, and you should probably have a referral to a reimbursement analyst for management of your asthma. Discharge orders & Medications Prescriptions: New alprazolam 0.5 mg Tablet 0.5 mg PO Q6H PRN (Reason: Anxiety) 7 Days Qty: 10 RF: 0 Flovent HFA 110 mcg/actuation Hfa Aerosol Inhaler 1 puff INH RTBID 30 Days Qty: 10.6 RF: 0 prednisone 20 mg Tablet 40 mg PO DAILY 1 Days Qty: 2 RF: 0 (DME) nebulizer and compressor Device See Rx Instructions .ROUTE .MEDSUPPLY Qty: 1 RF: 0 albuterol sulfate 2.5 mg /3 mL (0.083 %) solution for nebulization 2.5 mg INHALATION Q4-6H PRN (Reason: shortness of breath or wheezing) Qty: 75 RF: 0 Continued esomeprazole magnesium 40 mg capsule,delayed release(DR/EC) 40 mg PO DAILY 30 Days Qty: 30 RF: 0 lisinopril 10 mg tablet 10 mg PO BID 30 Days Qty: 60 RF: 0 montelukast 10 mg tablet 10 mg PO BEDTIME 30 Days Qty: 30 RF: 0 albuterol sulfate [ProAir HFA] 90 mcg/actuation HFA aerosol inhaler 2 puff INHALATION Q4HR PRN (Reason: Wheezing) 30 Days Qty: 18 RF: 0 topiramate 50 mg tablet 50 mg PO BID 30 Days Qty: 60 RF: 0 duloxetine 60 mg capsule,delayed release(DR/EC) 60 mg PO DAILY 30 Days Qty: 30 RF: 0 Discontinued metformin 500 mg tablet extended release 24 hr 500 mg PO QAM RF: 0 Combivent Respimat 20-100 mcg/actuation mist 1 spray INHALATION QID RF: 0 Discharge Health Status Health Concerns: Asthma Exacerbation Diet/Activity/Treatments Diet: Diet as Tolerated Activity: As tolerated Visit Report/Discharge Packet Instructions: Post-traumatic Stress Disorder, Depression, Anxiety Disorders, DI for Asthma -- Adult, Anxiety and Panic Attacks (Alternative Therapy), DI for Anxiety -- Adult, Fluticasone Oral Inhalation, Prednisone, Albuterol, Alprazolam Discharges patient from system. Discharge Date/Time: 09/13/19 18:13 Quality VTE Deep Vein Thrombosis/Pulmonary Embolism Present on Admission: No
[2019-09-13] MEDS: FLUTICASONE 120 SPRAY/16 GM SPRAY.SUSP NASAL (12:15)
[2019-09-13] MEDS: BENZOCAINE/MENTHOL 1 LOZ PKT 1 EACH PO (12:16)
[2019-09-13 13:12] VITALS: PULSE 101; RESP 18; O2SAT 94
--- NOTE | 2019-09-13 15:27 | PC.NURSE ---
Discharge: IV dc'd intact. Reviewed all discharge instructions and med list thoroughly. Patient aware that all scripts have been sent to [facility] and she needs to pick remover and take as directed. She plans to follow up with her PCP [facility] for her most immediate follow up, but plans to look for a new PCP a bit closer to home after that since she states her depression has made it difficult to motivate to drive [place] for her appointments. Reiterated importance of quitting smoking and patient verbalized understanding stating I know, Dr Block really gave me some tough love about it the other day and I needed that. Seems optimistic about quitting/not resuming smoking. Instructed to see if she can get a referral to a Science Faculty Member from her PCP for asthma management. Patient verbalized understanding of d/c info and stated no further questions. All personal belongings packed and ready to go at discharge. Patient showered and is all ready to go when her ride gets here. Jessica dillon RN aware of the same. Patient will call staff when ride arrives.
== END 2019-09-13 18:13 | disposition home or self-care (01) | DRG 141 ==
LOC: ED 22:04 → AC 09-11 02:04
PROVIDERS: Internal Medicine; Admitting Provider Nurse Practitioner Family; Emergency Provider Emergency Medicine; Referring Provider Emergency Medicine; Visit Provider Nurse Practitioner Family
DX: J45.901 Unspecified asthma with (acute) exacerbation (principal); J96.01 Acute respiratory failure with hypoxia; E87.2 Acidosis; E66.01 Morbid (severe) obesity due to excess calories; Z68.39 Body mass index [BMI] 39.0-39.9, adult; E11.40 Type 2 diabetes mellitus with diabetic neuropathy, unspecified; B34.2 Coronavirus infection, unspecified; I10 Essential (primary) hypertension; H46.9 Unspecified optic neuritis; F43.10 Post-traumatic stress disorder, unspecified; F32.9 Major depressive disorder, single episode, unspecified; F17.210 Nicotine dependence, cigarettes, uncomplicated; Z79.84 Long term (current) use of oral hypoglycemic drugs
CPT/HCPCS: 36415; 36600; 71045; 71275; 80048; 80053; 82805; 82962; 83036; 83605; 83735; 84145; 84484; 85025; 85379; 87040; 87502; 87633; 94150; 94640; 94762; 96361; 96374; 97116; 97161; 99284; J1644; J2405; J2930; J7050; J7613; Q9967

== ENCOUNTER 2019-10-23 12:28 | Inpatient (IN) | payer OTHER, MEDICAID, SELFPAY ==
[2019-09-11 01:11] VITALS: BMI 42.3
[2019-10-23] VITALS (8 sets, daily range): BP systolic 139–175; BP diastolic 99–115; PULSE 86–125; RESP 16–119; TEMP 36.3–36.8; O2SAT 91–96; BMI 41.1
--- NOTE | 2019-10-23 12:51 | DI.RAD.S_ITS ---
PROCEDURE: XR CHEST 1V INDICATIONS: shortness of breath / cough TECHNIQUE: One view of the chest was acquired. COMPARISON: [facility], CR, XR CHEST 1V, 09/10/2019, 19:49. FINDINGS: Surgical changes and devices: None. Lungs and pleura: Lungs are clear. No pleural effusions or pneumothorax. Mediastinum: Mediastinal contours appear normal. Heart size is normal. Bones and chest wall: No suspicious bony lesions. Overlying soft tissues appear unremarkable. IMPRESSION: No evidence acute pulmonary process. Dictated by: Kristian Parra M.D. on 10/23/2019 at 15:16 Approved by: Kristian Parra M.D. on 10/23/2019 at 15:16
[2019-10-23] MEDS: ALBUTEROL/IPRATROPIUM 3 ML AMPUL INH (13:07)
[2019-10-23 13:09] LABS: Add Manual Diff / Slide Review NO; Basophils Absolute Auto 100 /uL (0-100); Basophils Percent Auto 0.4 % (0-2); Eosinophils Absolute Auto 1800 /uL (0-450); Eosinophils Percent Auto 13.1 % (2-4); Hematocrit 45.5 % (36-46); Hemoglobin 16.1 g/dL (12.0-16.0); Lymphocytes Absolute Auto 1300 /uL (1100-4500); Lymphocytes Percent Auto 9.5 % (25-40); Mean Corpuscular HGB Conc 35.3 % (30-36); Mean Corpuscular Hemoglobin 32.9 PG (26-34); Mean Corpuscular Volume 93.2 fL (80-100); Monocytes Absolute Auto 500 /uL (0-900); Monocytes Percent Auto 3.5 % (3-14); Neutrophils Absolute Auto 10300 /uL (1500-7000); Neutrophils Percent Auto 73.5 % (50-75); Platelet Count 298 X10^3/uL (150-400); Red Blood Cell Count 4.88 X10^6/uL (4.0-5.2); Red Cell Distribution Width 14.1 % (11.6-14.8)
[2019-10-23] MEDS: methylPREDNISolone 125 MG/2 ML VIAL IV (13:14)
[2019-10-23 13:17] LABS: Alanine Aminotransferase 27 IU/L (<35); Albumin Globulin Ratio 1.3 (1.0-2.8); Alkaline Phosphatase 72 U/L (38-126); Aspartate Aminotransferase 36 IU/L (14-36); BUN Creatinine Ratio 9.2 (6-22); Bilirubin Total 0.8 mg/dL (0.2-1.3); Blood Urea Nitrogen 6 mg/dL (7-17); Calcium 9.6 mg/dL (8.4-10.2); Carbon Dioxide 22 mmol/L (22-32); Chloride 107 mmol/L (98-107); Estimated Glomerular Filt Rate > 60.0 mL/min (>60); Globulin 3.9 g/dL (1.7-4.1); Glucose 120 mg/dL (70-100); HEMOLYSIS 39 (0-50); Potassium 4.2 mmol/L (3.4-5.1); Sodium 139 mmol/L (137-145); Total Protein 8.9 g/dL (6.3-8.2)
[2019-10-23 13:23] LABS: Lactate (Lactic Acid) 2.9 mmol/L (0.7-2.1)
[2019-10-23] MEDS: SODIUM CHLORIDE 0.9% 1,000 ML 125 ML IV (13:29)
--- NOTE | 2019-10-23 13:32 | ED.SOB ---
HPI - SOB/Dyspnea <Jaret CORNELIO DarlingP - Last Filed: 10/24/19 00:55> General Chief Complaint: Shortness of Breath/Dyspnea Stated Complaint: SOB, cough Time Seen by Provider: 10/23/19 12:58 Source: patient Mode of arrival: Wheelchair Limitations: no limitations History of Present Illness HPI Narrative: This is a 34-year-old female, some day smoker, who presents to ED with progressively worsening short of breath over 1 week. Patient reports she has been having nausea, subjective fever and chills. She has known history of asthma and is currently using albuterol inhalers. She ran out of the inhaled cortical steroid, Flovent, about a week ago, the pharmacy did not have this in stock and she is about to pick this up tomorrow. She reports has been having productive cough with thin white mucus. She also reports has been having increasing allergy like symptoms with itching eyes, nose and runny nose for last 3 months. Patient has a history of anxiety, depression, PTSD, hypertension, reflux, hearing loss. Patient denies history of intubation but was hospitalized for 4 days with her asthma exacerbation symptoms in the beginning of September this year. Related Data Previous Rx's Medication Instructions Recorded nebulizer and compressor #1 each 09/13/19 Flovent HFA 1 puff INH RTBID 30 Days #10.6 gram 10/25/19 albuterol sulfate 2.5 mg INHALATION Q4-6H PRN #75 ml 10/25/19 albuterol sulfate [ProAir HFA] 2 puff INHALATION Q4HR PRN 30 Days 10/25/19 #18 gram duloxetine 60 mg PO DAILY 30 Days #30 cap 10/25/19 esomeprazole magnesium 40 mg PO DAILY 30 Days #30 cap 10/25/19 lisinopril 10 mg PO BID 30 Days #60 tab 10/25/19 montelukast 10 mg PO BEDTIME 30 Days #30 tab 10/25/19 ondansetron 4 mg PO Q6H PRN #10 tab 10/25/19 prednisone 40 mg PO DAILY 5 Days #10 tab 10/25/19 topiramate 50 mg PO BID 30 Days #60 tab 10/25/19 Allergies Allergy/AdvReac Type Severity Reaction Status Date / Time Penicillins AdvReac Intermediate Vomiting Verified 09/10/19 18:46 Review of Systems <LUIS Borjas - Last Filed: 10/24/19 00:55> Review of Systems Narrative: General: Denies (+) subjective fever and chills, fatigue, malaise, sweats. HEENT: Denies sinus pain, ear pain, sore throat, difficulty swallowing, dizziness. Respiratory: HPI Cardiovascular: Denies (+) chest tightness, palpitations, orthopnea, edema. Gastrointestinal: Denies (+) intermitten nausea, vomiting, abdominal pain, diarrhea, constipation, melena. : Denies dysuria, frequency, incontinence, hematuria, urinary retention. Musculoskeletal: Denies weakness, joint pain or bony pain. Skin: Denies rash, skin lesions, or other. Neurologic: Denies weakness, headache, numbness, change in speech, confusion, seizures, incoordination. Psychiatric: No concerning psychosocial issues. 12-point review of systems is negative except for those stated above. Patient History <LUIS Borjas - Last Filed: 10/24/19 00:55> Medical History Acid reflux (Acute) Anxiety (Acute) Asthma (Acute) Depression (Acute) Hypertension (Acute) Morbid (severe) obesity with alveolar hypoventilation (Acute) PTSD (post-traumatic stress disorder) (Acute) Surgical History No significant past surgical history (Acute) Family History Father Diabetes mellitus Mother Hypertension Arrhythmia Grandfather Colon cancer CAD (coronary artery disease) Social History household members: significant other Smoking Status: Current some day smoker Smoking Status: Current some day smoker tobacco type: cigarettes alcohol intake frequency: holidays/special occasions only Substance Use Type: marijuana Exam <LUIS Borjas - Last Filed: 10/24/19 00:55> Narrative Exam Narrative: GEN: Alert, oriented x 3, moderate respiratory acute distress with increased work of breathing, audible wheezing, tachypnea upon arrival. Head: Normal cephalic, atraumatic. No scalp or temporal tenderness, palpable mass or rash. EYES: Pupils are equal, round, and reactive to light and accommodation. Extraocular muscles are intact bilaterally. There is no subconjunctival hemorrhage, exudate and sclera non-icteric. ENT: Hearing grossly intact. Nose without bleeding, purulent discharge. Mucous membrane moist, no mucosal lesion. Neck: Trachea in midline. No JVD, non-tender without lymphadenopathy. No masses or thyroid megaly. Supple, non-tender and no meningeal signs. CARDIAC: Normal regular tachy rate and rhythm without murmurs, gallops, or rubs. No chest wall tenderness. No peripheral edema, cyanosis or pallor. Capillary refill is less than 2 seconds. RESPIRATORY: Lungs are wheeze to auscultate in all lobes. No cough, rales, or rhonchi. No stridor. Respiration in 22/min with O2 sat at 96% in RA. Moderate respiratory distress, with increase work of breathing, accessary muscle used, nasal flaring and tracheal tugging appreciated. ABD: Abdomen obese, soft, nontender and non-distended. No guarding or rebound tenderness to palpate. Bowel sounds are normal in all 4 quadrants. There is no palpable masses or organomegaly. EXT: Full painless ROM of all extremities with no loss of sensation, strength, effusion or edema. SKIN: Warm, sweaty, normal color for patient. No erythema, lesions or rash over visible areas. BACK: Nontender without deformity or crepitance. No flank tenderness. NEUROLOGICAL: Alert and oriented to place, time and person. Sensation and motor function intact bilaterally. No facial droops, dysphasia. PSYCHIATRIC: Good judgement and reason, without hallucinations, abnormal affect or abnormal behaviors during the examination. Patient is not suicidal. Initial Vital Signs Initial Vital Signs: Vital Signs Temperature 97.4 F L 10/23/19 12:35 Pulse Rate 113 H 10/23/19 12:35 Respiratory Rate 44 H 10/23/19 12:35 Blood Pressure 168/115 H 10/23/19 12:35 Pulse Oximetry 92 10/23/19 12:35 <Garth Lozano MD - Last Filed: 10/28/19 17:53> Initial Vital Signs Initial Vital Signs: Vital Signs Temperature 97.4 F L 10/23/19 12:35 Pulse Rate 113 H 10/23/19 12:35 Respiratory Rate 44 H 10/23/19 12:35 Blood Pressure 168/115 H 10/23/19 12:35 Pulse Oximetry 92 10/23/19 12:35 Scores <Jaret LUIS Darling - Last Filed: 10/24/19 00:55> GCS [place] coma scale eye opening: Spontaneous Jelena coma scale verbal response: Orientated Jelena coma scale motor response: Obey commands [place] coma scale total score: 15 Course <Jaret LUIS Darling - Last Filed: 10/24/19 00:55> Orders Ordered: Discontinued Medications Acetaminophen (Tylenol) 650 mg PO Q6HR PRN PRN Reason: Fever/Mild Pain (1-3) Last Admin: 10/23/19 20:55 Dose: 650 mg Documented by: BLANE Acetaminophen/Butalbital/Caffeine (Fioricet) 1 each PO NOW ONE Stop: 10/24/19 00:33 Last Admin: 10/24/19 08:15 Dose: 1 each Documented by: RAY Acetaminophen/Butalbital/Caffeine (Fioricet) 1 each PO Q6HR PRN PRN Reason: Headache Last Admin: 10/24/19 19:35 Dose: 1 each Documented by: SHAWN Albuterol (Ventolin) 10 mg INH NOW ONE Stop: 10/23/19 13:28 Last Admin: 10/23/19 14:15 Dose: 10 mg Documented by: MICHELE Albuterol (Ventolin) 2.5 mg INH Q2HR PRN PRN Reason: Shortness Of Breath Last Admin: 10/25/19 14:06 Dose: 2.5 mg Documented by: Admin: 10/25/19 09:39 Dose: 2.5 mg Documented by: Admin: 10/24/19 18:53 Dose: 2.5 mg Documented by: Admin: 10/24/19 10:31 Dose: 2.5 mg Documented by: Admin: 10/23/19 22:09 Dose: 2.5 mg Documented by: Admin: 10/23/19 18:36 Dose: 2.5 mg Documented by: CARLOS Albuterol (Ventolin Hfa) 2 puff INH RTQ4HR PRN PRN Reason: Shortness Of Breath Last Admin: 10/25/19 08:20 Dose: 2 puff Documented by: Admin: 10/25/19 05:24 Dose: 2 puff Documented by: GLEN Albuterol/Ipratropium (Duoneb) 3 ml INH NOW ONE Stop: 10/23/19 12:51 Last Admin: 10/23/19 13:07 Dose: 3 ml Documented by: MICHELE Dextrose (D50w) 25 gm IV PRN PRN PRN Reason: Hypoglycemia Duloxetine HCl (Cymbalta) 60 mg PO DAILY [facility] Last Admin: 10/25/19 08:53 Dose: 60 mg Documented by: Admin: 10/24/19 08:35 Dose: 60 mg Documented by: RAY Fluticasone Propionate (Flovent Hfa) 1 puff INH NOW ONE Stop: 10/23/19 15:08 Last Admin: 10/23/19 15:23 Dose: 1 puff Documented by: KIRA Fluticasone Propionate (Flovent Hfa) 1 puff INH RTBID [facility] Last Admin: 10/25/19 05:25 Dose: 1 puff Documented by: Admin: 10/24/19 18:53 Dose: 1 puff Documented by: Admin: 10/24/19 08:34 Dose: 1 puff Documented by: Admin: 10/23/19 21:00 Dose: 1 puff Documented by: BLANE Heparin Sodium (Porcine) (Heparin) 5,000 unit SUBCUT BID [facility] Last Admin: 10/25/19 08:54 Dose: Not Given Documented by: Admin: 10/24/19 21:01 Dose: 5,000 unit Documented by: Admin: 10/24/19 08:35 Dose: 5,000 unit Documented by: Admin: 10/23/19 20:59 Dose: 5,000 unit Documented by: BLANE Sodium Chloride (Normal Saline 0.9%) 1,000 mls @ 125 mls/hr IV CONT [facility] Last Admin: 10/24/19 02:26 Dose: 125 mls/hr Documented by: Infusion: 10/24/19 01:53 Dose: 125 mls/hr Documented by: Infusion: 10/23/19 18:14 Dose: 125 mls/hr Documented by: Infusion: 10/23/19 13:51 Dose: 0 mls/hr Documented by: Admin: 10/23/19 13:29 Dose: 125 mls/hr Documented by: KIRA Sodium Chloride (Normal Saline 0.9%) 3,265.86 mls @ 1,088.62 mls/hr 30 ml/kg infuse over 3 hr (3265.86 ml) IV NOW ONE Stop: 10/23/19 16:36 Last Infusion: 10/23/19 17:09 Dose: 0 mls/hr Documented by: Admin: 10/23/19 13:52 Dose: 1,088.62 mls/hr Documented by: KIRA Magnesium Sulfate (Magnesium Sulfate) 2 gm in 50 mls @ 50 mls/hr IV NOW ONE Stop: 10/23/19 16:07 Last Infusion: 10/23/19 16:05 Dose: 0 mls/hr Documented by: KIRA Cosigned by: SUNSHINE Admin: 10/23/19 15:24 Dose: 50 mls/hr Documented by: KIRA Cosigned by: CEASAR Insulin Aspart (Novolog Flexpen) 0 unit SUBCUT [facility]; Protocol Last Admin: 10/25/19 11:44 Dose: Not Given Documented by: Admin: 10/25/19 08:33 Dose: Not Given Documented by: Admin: 10/24/19 21:02 Dose: Not Given Documented by: Admin: 10/24/19 17:43 Dose: 1 unit Documented by: SHAWN Cosigned by: EMILIA Admin: 10/24/19 12:21 Dose: Not Given Documented by: Admin: 10/24/19 07:36 Dose: Not Given Documented by: Admin: 10/23/19 20:59 Dose: Not Given Documented by: BLANE Lisinopril (Zestril) 10 mg PO BID [facility] Last Admin: 10/24/19 08:35 Dose: 10 mg Documented by: Admin: 10/23/19 20:58 Dose: 10 mg Documented by: BLANE Lisinopril (Zestril) 40 mg PO DAILY [facility] Last Admin: 10/25/19 08:53 Dose: 40 mg Documented by: RAY Methylprednisolone (Solu-Medrol 125 Mg Vial) 125 mg IV NOW ONE Stop: 10/23/19 12:59 Last Admin: 10/23/19 13:14 Dose: 125 mg Documented by: KIRA Montelukast Sodium (Singulair) 10 mg PO BEDTIME [facility] Last Admin: 10/24/19 21:02 Dose: 10 mg Documented by: Admin: 10/23/19 20:58 Dose: 10 mg Documented by: BLANE Ondansetron HCl (Zofran) 4 mg IV PRN PRN PRN Reason: Nausea Last Admin: 10/23/19 15:23 Dose: 4 mg Documented by: KIRA Ondansetron HCl (Zofran) 4 mg IV Q6HR [facility] Ondansetron HCl (Zofran) 4 mg IV Q6HR PRN PRN Reason: Nausea Last Admin: 10/24/19 23:52 Dose: 4 mg Documented by: Admin: 10/24/19 15:50 Dose: 4 mg Documented by: SHAWN Ondansetron HCl (Zofran Odt) 4 mg SL Q4HR PRN PRN Reason: Nausea Last Admin: 10/25/19 11:54 Dose: 4 mg Documented by: RAY Pantoprazole Sodium (Protonix) 40 mg PO 0600 [facility] Last Admin: 10/25/19 05:22 Dose: 40 mg Documented by: Admin: 10/24/19 06:17 Dose: 40 mg Documented by: GLEN Prednisone (Deltasone) 40 mg PO DAILY [facility] Last Admin: 10/25/19 08:53 Dose: 40 mg Documented by: Admin: 10/24/19 08:35 Dose: 40 mg Documented by: RAY Topiramate (Topamax) 50 mg PO BID [facility] Last Admin: 10/25/19 08:53 Dose: 50 mg Documented by: Admin: 10/24/19 21:01 Dose: 50 mg Documented by: Admin: 10/24/19 08:35 Dose: 50 mg Documented by: Admin: 10/23/19 21:06 Dose: 50 mg Documented by: BLANE Reevaluation(s) Reevaluation #1: became severely take camp stephane with increased short of breath with small exertion such as moving from bedside commode to bed. Respiration rate at 28/min with O2 sat 96% in room air. Increased work of breathing. PF usual 200; Pre and post neb treatment (continuous) 160 w/o change. Wheezing throughout all lobes post neb treatment. Magnesium 2 g IV has been ordered. Flovent ICS has been ordered as Dr. Bell recommended. Time: 15:25 Vital Signs Vital signs: Vital Signs - 8 hr 10/23/19 12:35 10/23/19 13:10 10/23/19 14:15 Temperature 97.4 F L Pulse Rate 113 H 86 90 Respiratory Rate 44 H 22 20 Blood Pressure 168/115 H Pulse Oximetry 92 <Garth Lozano MD - Last Filed: 10/28/19 17:53> Orders Ordered: Discontinued Medications Acetaminophen (Tylenol) 650 mg PO Q6HR PRN PRN Reason: Fever/Mild Pain (1-3) Last Admin: 10/23/19 20:55 Dose: 650 mg Documented by: BLANE Acetaminophen/Butalbital/Caffeine (Fioricet) 1 each PO NOW ONE Stop: 10/24/19 00:33 Last Admin: 10/24/19 08:15 Dose: 1 each Documented by: RAY Acetaminophen/Butalbital/Caffeine (Fioricet) 1 each PO Q6HR PRN PRN Reason: Headache Last Admin: 10/24/19 19:35 Dose: 1 each Documented by: SHAWN Albuterol (Ventolin) 10 mg INH NOW ONE Stop: 10/23/19 13:28 Last Admin: 10/23/19 14:15 Dose: 10 mg Documented by: MICHELE Albuterol (Ventolin) 2.5 mg INH Q2HR PRN PRN Reason: Shortness Of Breath Last Admin: 10/25/19 14:06 Dose: 2.5 mg Documented by: Admin: 10/25/19 09:39 Dose: 2.5 mg Documented by: Admin: 10/24/19 18:53 Dose: 2.5 mg Documented by: Admin: 10/24/19 10:31 Dose: 2.5 mg Documented by: Admin: 10/23/19 22:09 Dose: 2.5 mg Documented by: Admin: 10/23/19 18:36 Dose: 2.5 mg Documented by: JFREELA Albuterol (Ventolin Hfa) 2 puff INH RTQ4HR PRN PRN Reason: Shortness Of Breath Last Admin: 10/25/19 08:20 Dose: 2 puff Documented by: Admin: 10/25/19 05:24 Dose: 2 puff Documented by: GLEN Albuterol/Ipratropium (Duoneb) 3 ml INH NOW ONE Stop: 10/23/19 12:51 Last Admin: 10/23/19 13:07 Dose: 3 ml Documented by: MICHELE Dextrose (D50w) 25 gm IV PRN PRN PRN Reason: Hypoglycemia Duloxetine HCl (Cymbalta) 60 mg PO DAILY [facility] Last Admin: 10/25/19 08:53 Dose: 60 mg Documented by: Admin: 10/24/19 08:35 Dose: 60 mg Documented by: RAY Fluticasone Propionate (Flovent Hfa) 1 puff INH NOW ONE Stop: 10/23/19 15:08 Last Admin: 10/23/19 15:23 Dose: 1 puff Documented by: KIRA Fluticasone Propionate (Flovent Hfa) 1 puff INH RTBID [facility] Last Admin: 10/25/19 05:25 Dose: 1 puff Documented by: Admin: 10/24/19 18:53 Dose: 1 puff Documented by: Admin: 10/24/19 08:34 Dose: 1 puff Documented by: Admin: 10/23/19 21:00 Dose: 1 puff Documented by: BLANE Heparin Sodium (Porcine) (Heparin) 5,000 unit SUBCUT BID [facility] Last Admin: 10/25/19 08:54 Dose: Not Given Documented by: Admin: 10/24/19 21:01 Dose: 5,000 unit Documented by: Admin: 10/24/19 08:35 Dose: 5,000 unit Documented by: Lia Admin: 10/23/19 20:59 Dose: 5,000 unit Documented by: BLANE Sodium Chloride (Normal Saline 0.9%) 1,000 mls @ 125 mls/hr IV CONT [facility] Last Admin: 10/24/19 02:26 Dose: 125 mls/hr Documented by: Infusion: 10/24/19 01:53 Dose: 125 mls/hr Documented by: Infusion: 10/23/19 18:14 Dose: 125 mls/hr Documented by: Infusion: 10/23/19 13:51 Dose: 0 mls/hr Documented by: Admin: 10/23/19 13:29 Dose: 125 mls/hr Documented by: KIRA Sodium Chloride (Normal Saline 0.9%) 3,265.86 mls @ 1,088.62 mls/hr 30 ml/kg infuse over 3 hr (3265.86 ml) IV NOW ONE Stop: 10/23/19 16:36 Last Infusion: 10/23/19 17:09 Dose: 0 mls/hr Documented by: Admin: 10/23/19 13:52 Dose: 1,088.62 mls/hr Documented by: KIRA Magnesium Sulfate (Magnesium Sulfate) 2 gm in 50 mls @ 50 mls/hr IV NOW ONE Stop: 10/23/19 16:07 Last Infusion: 10/23/19 16:05 Dose: 0 mls/hr Documented by: KIRA Cosigned by: SUNSHINE Admin: 10/23/19 15:24 Dose: 50 mls/hr Documented by: KIRA Cosigned by: CEASAR Insulin Aspart (Novolog Flexpen) 0 unit SUBCUT [facility]; Protocol Last Admin: 10/25/19 11:44 Dose: Not Given Documented by: Admin: 10/25/19 08:33 Dose: Not Given Documented by: Admin: 10/24/19 21:02 Dose: Not Given Documented by: Admin: 10/24/19 17:43 Dose: 1 unit Documented by: SHAWN Cosigned by: EMILIA Admin: 10/24/19 12:21 Dose: Not Given Documented by: Lia Admin: 10/24/19 07:36 Dose: Not Given Documented by: Admin: 10/23/19 20:59 Dose: Not Given Documented by: BLANE Lisinopril (Zestril) 10 mg PO BID [facility] Last Admin: 10/24/19 08:35 Dose: 10 mg Documented by: Admin: 10/23/19 20:58 Dose: 10 mg Documented by: BLANE Lisinopril (Zestril) 40 mg PO DAILY [facility] Last Admin: 10/25/19 08:53 Dose: 40 mg Documented by: RAY Methylprednisolone (Solu-Medrol 125 Mg Vial) 125 mg IV NOW ONE Stop: 10/23/19 12:59 Last Admin: 10/23/19 13:14 Dose: 125 mg Documented by: KIRA Montelukast Sodium (Singulair) 10 mg PO BEDTIME [facility] Last Admin: 10/24/19 21:02 Dose: 10 mg Documented by: Admin: 10/23/19 20:58 Dose: 10 mg Documented by: BLANE Ondansetron HCl (Zofran) 4 mg IV PRN PRN PRN Reason: Nausea Last Admin: 10/23/19 15:23 Dose: 4 mg Documented by: KIRA Ondansetron HCl (Zofran) 4 mg IV Q6HR [facility] Ondansetron HCl (Zofran) 4 mg IV Q6HR PRN PRN Reason: Nausea Last Admin: 10/24/19 23:52 Dose: 4 mg Documented by: Admin: 10/24/19 15:50 Dose: 4 mg Documented by: SHAWN Ondansetron HCl (Zofran Odt) 4 mg SL Q4HR PRN PRN Reason: Nausea Last Admin: 10/25/19 11:54 Dose: 4 mg Documented by: RAY Pantoprazole Sodium (Protonix) 40 mg PO 0600 [facility] Last Admin: 10/25/19 05:22 Dose: 40 mg Documented by: Admin: 10/24/19 06:17 Dose: 40 mg Documented by: GLEN Prednisone (Deltasone) 40 mg PO DAILY [facility] Last Admin: 10/25/19 08:53 Dose: 40 mg Documented by: Admin: 10/24/19 08:35 Dose: 40 mg Documented by: RAY Topiramate (Topamax) 50 mg PO BID [facility] Last Admin: 10/25/19 08:53 Dose: 50 mg Documented by: Admin: 10/24/19 21:01 Dose: 50 mg Documented by: Admin: 10/24/19 08:35 Dose: 50 mg Documented by: Admin: 10/23/19 21:06 Dose: 50 mg Documented by: BLANE Vital Signs Vital signs: Vital Signs - 8 hr 10/23/19 12:35 10/23/19 13:10 10/23/19 14:15 Temperature 97.4 F L Pulse Rate 113 H 86 90 Respiratory Rate 44 H 22 20 Blood Pressure 168/115 H Pulse Oximetry 92 MDM - SOB/Dyspnea <Jaret LUIS Darling - Last Filed: 10/24/19 00:55> Differential Diagnosis Differential diagnosis: Likely acute exacerbation of chronic obstructive airways disease, community acquired pneumonia and asthma with exacerbation Medical Records Attestation: I reviewed the patient's medical records. Lab Data Attestation: I reviewed the patient's lab results. Result diagrams: 10/25/19 04:55 10/25/19 04:55 Labs: Lab Results 10/23/19 10/23/19 10/23/19 Range/Units 12:56 12:56 12:56 WBC 14.0 H (4.5-11.0) X10^3/uL RBC 4.88 (4.0-5.2) X10^6/uL Hgb 16.1 H (12.0-16.0) g/dL Hct 45.5 (36-46) % MCV 93.2 (80-100) fL MCH 32.9 (26-34) PG MCHC 35.3 (30-36) % RDW 14.1 (11.6-14.8) % Plt Count 298 (150-400) X10^3/uL Neut % (Auto) 73.5 (50-75) % Lymph % (Auto) 9.5 L (25-40) % [place] % (Auto) 3.5 (3-14) % Eos % (Auto) 13.1 H (2-4) % Baso % (Auto) 0.4 (0-2) % Neut # (Auto) 63502 H (5349-8544) /uL Lymph # (Auto) 1300 (8164-8203) /uL [place] # (Auto) 500 (0-900) /uL Eos # (Auto) 1800 H (0-450) /uL Baso # (Auto) 100 (0-100) /uL D-Dimer (<230) ng/mL Sodium (137-145) mmol/L Potassium (3.4-5.1) mmol/L Chloride (98-107) mmol/L Carbon Dioxide (22-32) mmol/L BUN (7-17) mg/dL Creatinine (0.52-1.04) mg/dL Estimated GFR (>60) mL/min BUN/Creatinine Ratio (6-22) Glucose (70-100) mg/dL Lactate 2.9 H (0.7-2.1) mmol/L Calcium (8.4-10.2) mg/dL Magnesium (1.6-2.3) mg/dL Total Bilirubin (0.2-1.3) mg/dL AST (14-36) IU/L ALT (<35) IU/L Alkaline Phosphatase (38-126) U/L Total Protein (6.3-8.2) g/dL Albumin (3.5-5.0) g/dL Globulin (1.7-4.1) g/dL Albumin/Globulin Ratio (1.0-2.8) Procalcitonin < 0.05 (<0.5) ng/mL HCG, Quant mIU/mL Chlamy pneumoniae PCR (Not Detect) Adenovirus (PCR) (Not Detect) B.parapertussis DNA PCR (Not Detect) Coronavirus OC43 (PCR) (Not Detect) Coronavirus HKU1 (PCR) (Not Detect) Coronavirus 229E (PCR) (Not Detect) Coronavirus NL63 (PCR) (Not Detect) Human Metapneumovir PCR (Not Detect) Influenza A (RT-PCR) (NEGATIVE) Influenza Type A (PCR) (Not Detect) Influenza B (RT-PCR) (NEGATIVE) Influenza Type B (PCR) (Not Detect) M. pneumoniae (PCR) (Not Detect) Parainfluenza 1 (PCR) (Not Detect) Parainfluenza 2 (PCR) (Not Detect) Parainfluenza 3 (PCR) (Not Detect) Parainfluenza 4 (PCR) (Not Detect) RSV (PCR) (Not Detect) Entero/Rhino (PCR) (Not Detect) 10/23/19 10/23/19 10/23/19 Range/Units 12:56 12:56 12:56 WBC (4.5-11.0) X10^3/uL RBC (4.0-5.2) X10^6/uL Hgb (12.0-16.0) g/dL Hct (36-46) % MCV (80-100) fL MCH (26-34) PG MCHC (30-36) % RDW (11.6-14.8) % Plt Count (150-400) X10^3/uL Neut % (Auto) (50-75) % Lymph % (Auto) (25-40) % [place] % (Auto) (3-14) % Eos % (Auto) (2-4) % Baso % (Auto) (0-2) % Neut # (Auto) (5017-4323) /uL Lymph # (Auto) (7235-0560) /uL [place] # (Auto) (0-900) /uL Eos # (Auto) (0-450) /uL Baso # (Auto) (0-100) /uL D-Dimer (<230) ng/mL Sodium 139 (137-145) mmol/L Potassium 4.2 (3.4-5.1) mmol/L Chloride 107 (98-107) mmol/L Carbon Dioxide 22 (22-32) mmol/L BUN 6 L (7-17) mg/dL Creatinine 0.65 (0.52-1.04) mg/dL Estimated GFR > 60.0 (>60) mL/min BUN/Creatinine Ratio 9.2 (6-22) Glucose 120 H (70-100) mg/dL Lactate (0.7-2.1) mmol/L Calcium 9.6 (8.4-10.2) mg/dL Magnesium 2.0 (1.6-2.3) mg/dL Total Bilirubin 0.8 (0.2-1.3) mg/dL AST 36 (14-36) IU/L ALT 27 (<35) IU/L Alkaline Phosphatase 72 (38-126) U/L Total Protein 8.9 H (6.3-8.2) g/dL Albumin 5.0 (3.5-5.0) g/dL Globulin 3.9 (1.7-4.1) g/dL Albumin/Globulin Ratio 1.3 (1.0-2.8) Procalcitonin (<0.5) ng/mL HCG, Quant < 2.4 mIU/mL Chlamy pneumoniae PCR (Not Detect) Adenovirus (PCR) (Not Detect) B.parapertussis DNA PCR (Not Detect) Coronavirus OC43 (PCR) (Not Detect) Coronavirus HKU1 (PCR) (Not Detect) Coronavirus 229E (PCR) (Not Detect) Coronavirus NL63 (PCR) (Not Detect) Human Metapneumovir PCR (Not Detect) Influenza A (RT-PCR) Flu a negative (NEGATIVE) Influenza Type A (PCR) (Not Detect) Influenza B (RT-PCR) Flu b negative (NEGATIVE) Influenza Type B (PCR) (Not Detect) M. pneumoniae (PCR) (Not Detect) Parainfluenza 1 (PCR) (Not Detect) Parainfluenza 2 (PCR) (Not Detect) Parainfluenza 3 (PCR) (Not Detect) Parainfluenza 4 (PCR) (Not Detect) RSV (PCR) (Not Detect) Entero/Rhino (PCR) (Not Detect) 10/23/19 10/23/19 10/23/19 Range/Units 12:56 12:56 15:17 WBC (4.5-11.0) X10^3/uL RBC (4.0-5.2) X10^6/uL Hgb (12.0-16.0) g/dL Hct (36-46) % MCV (80-100) fL MCH (26-34) PG MCHC (30-36) % RDW (11.6-14.8) % Plt Count (150-400) X10^3/uL Neut % (Auto) (50-75) % Lymph % (Auto) (25-40) % [place] % (Auto) (3-14) % Eos % (Auto) (2-4) % Baso % (Auto) (0-2) % Neut # (Auto) (7408-2329) /uL Lymph # (Auto) (4025-0334) /uL [place] # (Auto) (0-900) /uL Eos # (Auto) (0-450) /uL Baso # (Auto) (0-100) /uL D-Dimer 331 H (<230) ng/mL Sodium (137-145) mmol/L Potassium (3.4-5.1) mmol/L Chloride (98-107) mmol/L Carbon Dioxide (22-32) mmol/L BUN (7-17) mg/dL Creatinine (0.52-1.04) mg/dL Estimated GFR (>60) mL/min BUN/Creatinine Ratio (6-22) Glucose (70-100) mg/dL Lactate 4.4 H* (0.7-2.1) mmol/L Calcium (8.4-10.2) mg/dL Magnesium (1.6-2.3) mg/dL Total Bilirubin (0.2-1.3) mg/dL AST (14-36) IU/L ALT (<35) IU/L Alkaline Phosphatase (38-126) U/L Total Protein (6.3-8.2) g/dL Albumin (3.5-5.0) g/dL Globulin (1.7-4.1) g/dL Albumin/Globulin Ratio (1.0-2.8) Procalcitonin (<0.5) ng/mL HCG, Quant mIU/mL Chlamy pneumoniae PCR Not detected (Not Detect) Adenovirus (PCR) Not detected (Not Detect) B.parapertussis DNA PCR Not detected (Not Detect) Coronavirus OC43 (PCR) Not detected (Not Detect) Coronavirus HKU1 (PCR) Not detected (Not Detect) Coronavirus 229E (PCR) Not detected (Not Detect) Coronavirus NL63 (PCR) Not detected (Not Detect) Human Metapneumovir PCR Not detected (Not Detect) Influenza A (RT-PCR) (NEGATIVE) Influenza Type A (PCR) Not detected (Not Detect) Influenza B (RT-PCR) (NEGATIVE) Influenza Type B (PCR) Not detected (Not Detect) M. pneumoniae (PCR) Not detected (Not Detect) Parainfluenza 1 (PCR) Not detected (Not Detect) Parainfluenza 2 (PCR) Not detected (Not Detect) Parainfluenza 3 (PCR) Not detected (Not Detect) Parainfluenza 4 (PCR) Not detected (Not Detect) RSV (PCR) Not detected (Not Detect) Entero/Rhino (PCR) Not detected (Not Detect) Point of Care Testing Glucose POC 137 Urine Dip Bedside Urine Glucose Negative Bedside Urine Bilirubin - Negative Bedside Urine Ketone + 15 Urine Specific [place] 1.015 Bedside Urine Occult Blood - Negative Bedside Urine pH 6.0 Bedside Urine Protein - Negative Bedside Urine Urobilinogen - Negative Bedside Urine Nitrite - Negative Bedside Urine Leukocytes - Negative Esterase Imaging Data Chest x-ray: Radiologist's Impression: [address] [address] XRay Report Signed Patient: Milagros Barksdale#: [id number] : 1985Acct:[id number] Age/Sex: 34 / FDate of Service: 10/23/19 Loc: ED Accession Number: [id number] Procedure: XR chest 1V Ordering Provider: Levar Silva MD PROCEDURE: XR CHEST 1V INDICATIONS: shortness of breath / cough TECHNIQUE: One view of the chest was acquired. COMPARISON: [facility], CR, XR CHEST 1V, 09/10/2019, 19:49. FINDINGS: Surgical changes and devices: None. Lungs and pleura: Lungs are clear. No pleural effusions or pneumothorax. Mediastinum: Mediastinal contours appear normal. Heart size is normal. Bones and chest wall: No suspicious bony lesions. Overlying soft tissues appear unremarkable. IMPRESSION: No evidence acute pulmonary process. Dictated by: Kristian Parra M.D. on 10/23/2019 at 15:16 Approved by: Kristian Parra M.D. on 10/23/2019 at 15:16 ECG Data Attestation: I personally reviewed and interpreted this ECG as follows: Prior ECG tracings: not available for review Interpretation: ST rate at 108. Normal [place]. GA int 126, QRS duration 74, QT/QTC 360/[address] elevation or depression. MDM Narrative Medical decision making narrative: This is a 34-year-old female with history of asthma presents to ED with respiratory distress. Patient had audible wheezing, tachypnea, tachycardia, with hypertension, increased work of breathing with nasal flaring and tracheal tugging. O2 said in room air was 92% initially. Patient reports short of breath with a short distance of ambulation. Patient was afebrile she but she reported subjective chills and fever. Patient denies any known exposure to illness. Patient associated her symptoms with not being able to use her inhaled cortical steroid Flovent for last a week since the pharmacy did not have the medication in stock. Patient was given DuoNeb, Solu-Medrol 125 mg IV, continuous neb of 10 mg. patient reports little improvement after this treatment. Patient received 2 g IV of magnesium. Patient became short of breath after using bedside commode and return to her bed. Patient had leukocytosis of 14.0 with elevated neutrophils. Lactic acid was 2.9 with normal procalcitonin. The remaining chemistry was unremarkable. Respiratory panel was negative. D dimer was 331 and unchanged from previous visit and at that time chest CTA was negative. Chest Xray test does not indicate infiltrates. The patient usual PF is 200 and pre and post PF today was 160. After the magnesium infusion, patient's symptoms were still remained and continued with short of breath with scattered wheezing in all lobes. O2 sat is at 90-95% room air. was contacted for consult and he kindly accepted the patient's care for your observation admission versus asthma exacerbation. It was recommended that no Covid-19 swab is required at this time. <Garth Lozano MD - Last Filed: 10/28/19 17:53> Lab Data Labs: Lab Results 10/23/19 10/23/19 10/23/19 Range/Units 12:56 12:56 12:56 WBC 14.0 H (4.5-11.0) X10^3/uL RBC 4.88 (4.0-5.2) X10^6/uL Hgb 16.1 H (12.0-16.0) g/dL Hct 45.5 (36-46) % MCV 93.2 (80-100) fL MCH 32.9 (26-34) PG MCHC 35.3 (30-36) % RDW 14.1 (11.6-14.8) % Plt Count 298 (150-400) X10^3/uL Neut % (Auto) 73.5 (50-75) % Lymph % (Auto) 9.5 L (25-40) % [place] % (Auto) 3.5 (3-14) % Eos % (Auto) 13.1 H (2-4) % Baso % (Auto) 0.4 (0-2) % Neut # (Auto) 07826 H (7982-2222) /uL Lymph # (Auto) 1300 (3399-4984) /uL [place] # (Auto) 500 (0-900) /uL Eos # (Auto) 1800 H (0-450) /uL Baso # (Auto) 100 (0-100) /uL D-Dimer (<230) ng/mL Sodium (137-145) mmol/L Potassium (3.4-5.1) mmol/L Chloride (98-107) mmol/L Carbon Dioxide (22-32) mmol/L BUN (7-17) mg/dL Creatinine (0.52-1.04) mg/dL Estimated GFR (>60) mL/min BUN/Creatinine Ratio (6-22) Glucose (70-100) mg/dL Lactate 2.9 H (0.7-2.1) mmol/L Calcium (8.4-10.2) mg/dL Magnesium (1.6-2.3) mg/dL Total Bilirubin (0.2-1.3) mg/dL AST (14-36) IU/L ALT (<35) IU/L Alkaline Phosphatase (38-126) U/L Total Protein (6.3-8.2) g/dL Albumin (3.5-5.0) g/dL Globulin (1.7-4.1) g/dL Albumin/Globulin Ratio (1.0-2.8) Procalcitonin < 0.05 (<0.5) ng/mL HCG, Quant mIU/mL Chlamy pneumoniae PCR (Not Detect) Adenovirus (PCR) (Not Detect) B.parapertussis DNA PCR (Not Detect) Coronavirus OC43 (PCR) (Not Detect) Coronavirus HKU1 (PCR) (Not Detect) Coronavirus 229E (PCR) (Not Detect) Coronavirus NL63 (PCR) (Not Detect) Human Metapneumovir PCR (Not Detect) Influenza A (RT-PCR) (NEGATIVE) Influenza Type A (PCR) (Not Detect) Influenza B (RT-PCR) (NEGATIVE) Influenza Type B (PCR) (Not Detect) M. pneumoniae (PCR) (Not Detect) Parainfluenza 1 (PCR) (Not Detect) Parainfluenza 2 (PCR) (Not Detect) Parainfluenza 3 (PCR) (Not Detect) Parainfluenza 4 (PCR) (Not Detect) RSV (PCR) (Not Detect) Entero/Rhino (PCR) (Not Detect) 10/23/19 10/23/19 10/23/19 Range/Units 12:56 12:56 12:56 WBC (4.5-11.0) X10^3/uL RBC (4.0-5.2) X10^6/uL Hgb (12.0-16.0) g/dL Hct (36-46) % MCV (80-100) fL MCH (26-34) PG MCHC (30-36) % RDW (11.6-14.8) % Plt Count (150-400) X10^3/uL Neut % (Auto) (50-75) % Lymph % (Auto) (25-40) % [place] % (Auto) (3-14) % Eos % (Auto) (2-4) % Baso % (Auto) (0-2) % Neut # (Auto) (6592-1370) /uL Lymph # (Auto) (0475-4765) /uL [place] # (Auto) (0-900) /uL Eos # (Auto) (0-450) /uL Baso # (Auto) (0-100) /uL D-Dimer (<230) ng/mL Sodium 139 (137-145) mmol/L Potassium 4.2 (3.4-5.1) mmol/L Chloride 107 (98-107) mmol/L Carbon Dioxide 22 (22-32) mmol/L BUN 6 L (7-17) mg/dL Creatinine 0.65 (0.52-1.04) mg/dL Estimated GFR > 60.0 (>60) mL/min BUN/Creatinine Ratio 9.2 (6-22) Glucose 120 H (70-100) mg/dL Lactate (0.7-2.1) mmol/L Calcium 9.6 (8.4-10.2) mg/dL Magnesium 2.0 (1.6-2.3) mg/dL Total Bilirubin 0.8 (0.2-1.3) mg/dL AST 36 (14-36) IU/L ALT 27 (<35) IU/L Alkaline Phosphatase 72 (38-126) U/L Total Protein 8.9 H (6.3-8.2) g/dL Albumin 5.0 (3.5-5.0) g/dL Globulin 3.9 (1.7-4.1) g/dL Albumin/Globulin Ratio 1.3 (1.0-2.8) Procalcitonin (<0.5) ng/mL HCG, Quant < 2.4 mIU/mL Chlamy pneumoniae PCR (Not Detect) Adenovirus (PCR) (Not Detect) B.parapertussis DNA PCR (Not Detect) Coronavirus OC43 (PCR) (Not Detect) Coronavirus HKU1 (PCR) (Not Detect) Coronavirus 229E (PCR) (Not Detect) Coronavirus NL63 (PCR) (Not Detect) Human Metapneumovir PCR (Not Detect) Influenza A (RT-PCR) Flu a negative (NEGATIVE) Influenza Type A (PCR) (Not Detect) Influenza B (RT-PCR) Flu b negative (NEGATIVE) Influenza Type B (PCR) (Not Detect) M. pneumoniae (PCR) (Not Detect) Parainfluenza 1 (PCR) (Not Detect) Parainfluenza 2 (PCR) (Not Detect) Parainfluenza 3 (PCR) (Not Detect) Parainfluenza 4 (PCR) (Not Detect) RSV (PCR) (Not Detect) Entero/Rhino (PCR) (Not Detect) 10/23/19 10/23/19 10/23/19 Range/Units 12:56 12:56 15:17 WBC (4.5-11.0) X10^3/uL RBC (4.0-5.2) X10^6/uL Hgb (12.0-16.0) g/dL Hct (36-46) % MCV (80-100) fL MCH (26-34) PG MCHC (30-36) % RDW (11.6-14.8) % Plt Count (150-400) X10^3/uL Neut % (Auto) (50-75) % Lymph % (Auto) (25-40) % [place] % (Auto) (3-14) % Eos % (Auto) (2-4) % Baso % (Auto) (0-2) % Neut # (Auto) (6366-4663) /uL Lymph # (Auto) (0834-9935) /uL [place] # (Auto) (0-900) /uL Eos # (Auto) (0-450) /uL Baso # (Auto) (0-100) /uL D-Dimer 331 H (<230) ng/mL Sodium (137-145) mmol/L Potassium (3.4-5.1) mmol/L Chloride (98-107) mmol/L Carbon Dioxide (22-32) mmol/L BUN (7-17) mg/dL Creatinine (0.52-1.04) mg/dL Estimated GFR (>60) mL/min BUN/Creatinine Ratio (6-22) Glucose (70-100) mg/dL Lactate 4.4 H* (0.7-2.1) mmol/L Calcium (8.4-10.2) mg/dL Magnesium (1.6-2.3) mg/dL Total Bilirubin (0.2-1.3) mg/dL AST (14-36) IU/L ALT (<35) IU/L Alkaline Phosphatase (38-126) U/L Total Protein (6.3-8.2) g/dL Albumin (3.5-5.0) g/dL Globulin (1.7-4.1) g/dL Albumin/Globulin Ratio (1.0-2.8) Procalcitonin (<0.5) ng/mL HCG, Quant mIU/mL Chlamy pneumoniae PCR Not detected (Not Detect) Adenovirus (PCR) Not detected (Not Detect) B.parapertussis DNA PCR Not detected (Not Detect) Coronavirus OC43 (PCR) Not detected (Not Detect) Coronavirus HKU1 (PCR) Not detected (Not Detect) Coronavirus 229E (PCR) Not detected (Not Detect) Coronavirus NL63 (PCR) Not detected (Not Detect) Human Metapneumovir PCR Not detected (Not Detect) Influenza A (RT-PCR) (NEGATIVE) Influenza Type A (PCR) Not detected (Not Detect) Influenza B (RT-PCR) (NEGATIVE) Influenza Type B (PCR) Not detected (Not Detect) M. pneumoniae (PCR) Not detected (Not Detect) Parainfluenza 1 (PCR) Not detected (Not Detect) Parainfluenza 2 (PCR) Not detected (Not Detect) Parainfluenza 3 (PCR) Not detected (Not Detect) Parainfluenza 4 (PCR) Not detected (Not Detect) RSV (PCR) Not detected (Not Detect) Entero/Rhino (PCR) Not detected (Not Detect) Point of Care Testing Glucose POC 137 Urine Dip Bedside Urine Glucose Negative Bedside Urine Bilirubin - Negative Bedside Urine Ketone + 15 Urine Specific [place] 1.015 Bedside Urine Occult Blood - Negative Bedside Urine pH 6.0 Bedside Urine Protein - Negative Bedside Urine Urobilinogen - Negative Bedside Urine Nitrite - Negative Bedside Urine Leukocytes - Negative Esterase Discharge Plan Departure Patient Disposition: Admitted as Observation Clinical Impression: Asthma exacerbation Qualifiers: Asthma severity: unspecified severity Asthma persistence: unspecified Qualified Code(s): J45.901 - Unspecified asthma with (acute) exacerbation Discharge Date/Time: 10/23/19 17:29 Instructions: Type 2 Diabetes, Asthma -- Adult, DI for Asthma -- Adult, Prednisone, Ondansetron Admit Date/Time: 10/23/19 16:38 Admit Provider: Nikos Bell
[2019-10-23] MEDS: SODIUM CHLORIDE 0.9% 3,265.86 ML 1088.62 ML IV (13:52)
[2019-10-23 14:00] LABS: Procalcitonin < 0.05 ng/mL (<0.5)
[2019-10-23 14:02] LABS: Influenza A - CEPHEID Flu A NEGATIVE (NEGATIVE); Influenza B - CEPHEID Flu B NEGATIVE (NEGATIVE)
[2019-10-23] MEDS: ALBUTEROL 2.5 MG/3 ML NEB (ADULT) 10 MG INH (14:15)
[2019-10-23 14:45] LABS: HCG Quantitative /Beta subunit < 2.4 mIU/mL
--- NOTE | 2019-10-23 15:00 | RT ---
Peak flow meter issued and taugh. Pred: 480 Pre tx (after one neb already): 160 Post cont neb: 160 Reported to Jaret
[2019-10-23 15:04] LABS: Reflexed Lactate in 2 Hours Y
[2019-10-23] MEDS: ONDANSETRON 4 MG/2 ML INJ IV (15:23)
[2019-10-23] MEDS: FLUTICASONE 110MCG HFA 120 PUFF INH ×2 (15:23→21:00)
[2019-10-23] MEDS: MAGNESIUM SULFATE 2 GM/50 ML PIGGYBACK IV (15:24)
[2019-10-23 15:49] LABS: Adenovirus Not Detected (Not Detect); Bordetella pertussis Not Detected (Not Detect); Chlamydophila pneumoniae Not Detected (Not Detect); Coronavirus 229E Not Detected (Not Detect); Coronavirus HKU1 Not Detected (Not Detect); Coronavirus NL 63 Not Detected (Not Detect); Coronavirus OC43 Not Detected (Not Detect); Human Metapneumovirus Not Detected (Not Detect); Human Rhinovirus/Enterovirus Not Detected (Not Detect); Influenza A Not Detected (Not Detect); Influenza B Not Detected (Not Detect); Mycoplasma pneumoniae Not Detected (Not Detect); Parainfluenza Virus 1 Not Detected (Not Detect); Parainfluenza Virus 2 Not Detected (Not Detect); Parainfluenza Virus 3 Not Detected (Not Detect); Parainfluenza Virus 4 Not Detected (Not Detect); Respiratory Syncytial Virus Not Detected (Not Detect)
[2019-10-23 16:00] LABS: Lactate 2HR (Lactic Acid Rflx) 4.4 mmol/L (0.7-2.1)
--- NOTE | 2019-10-23 17:37 | PM.HP.1 ---
History of Present Illness History of Present Illness Date Patient Seen: 10/23/19 Time Patient Seen: 17:37 Chief complaint: SOB, cough Narrative: Kristin Barksdale is a 34 year old female with PMH of asthma, PTSD, and depression, and previous diabetes recently admitted about a month ago for asthma exacerbation who presented to the emergency room for shortness of breath for the past 2 days. She had been doing well after discharge, but ran out of her medication as she was unable to see her primary care doctor in [place] due to issues with travel. She has been without her fluticasone inhaler for the past 2 weeks. Starting 2 days ago she has become more short of breath, and dyspneic on exertion. She is unable to walk to the bathroom without getting short of breath. She has been using her albuterol inhaler, and nebulizer approximately every 4 hours. These help but do not completely resolve her symptoms. She presented today due to even worsening short of breath, to the point where she feels like she could breathe at all. She denies recent fevers, but does report hot flashes and chills over the past couple of weeks. She has been short of breath and does have a cough, but these have been fairly chronic. She denies any sick contacts, and no one has been sick around her. Her usual peak flow is around 160, however recently it is been much lower. She denies any recent travel. She has been somewhat immobilized by the shortness of breath. She also endorses a 40 lb weight gain over the past year, and she does report some worsening PTSD and depression because she ran out of her medications 2 weeks ago. In the emergency room, the patient was tachypneic, tachycardic, and hypertensive. She was very dyspneic, but saturating well on room air. She was afebrile. EKG showed sinus tachycardia without evidence of ischemia. Lab evaluation was notable for a leukocytosis to 14, lactic acid of 2.9 on admission the increased to 4.4 after continuous albuterol. Patient had a negative hCG, negative procalcitonin, and chemistries were unremarkable. Chest x-ray showed mildly hyperinflated lungs, but no acute infiltrates. Patient was given continuous albuterol, fluticasone inhaler, 125 mg of Solu-Medrol, DuoNeb, magnesium, and fluid bolus in the emergency room. These somewhat helped with her symptoms which she was still quite dyspneic on minimal exertion. She was admitted under observation status for asthma exacerbation. Patient History Medical History Acid reflux (Acute) Anxiety (Acute) Asthma (Acute) Depression (Acute) Hypertension (Acute) Morbid (severe) obesity with alveolar hypoventilation (Acute) PTSD (post-traumatic stress disorder) (Acute) Surgical History No significant past surgical history (Acute) Family & Social History Family History Father Diabetes mellitus Mother Hypertension Arrhythmia Grandfather Colon cancer CAD (coronary artery disease) Social History: household members significant other Safety & Behavioral: Feels Safe in Current Yes Environment Been Physically Hurt or No Threatened By a Person Tobacco & Substance use: Smoking Status Current some day smoker alcohol intake frequency holiday/special occasion Substance Use Type marijuana Meds Home Medications and Allergies Home Medications Medication Instructions Recorded Confirmed Type albuterol sulfate 2.5 mg INHALATION Q4-6H PRN #75 ml 09/13/19 Rx albuterol sulfate [ProAir HFA] 2 puff INHALATION Q4HR PRN 30 Days 09/13/19 Rx #18 gram duloxetine 60 mg PO DAILY 30 Days #30 cap 09/13/19 Rx esomeprazole magnesium 40 mg PO DAILY 30 Days #30 cap 09/13/19 Rx fluticasone propionate [Flovent 1 puff INH RTBID 30 Days #10.6 gram 09/13/19 Rx HFA] lisinopril 10 mg PO BID 30 Days #60 tab 09/13/19 Rx montelukast 10 mg PO BEDTIME 30 Days #30 tab 09/13/19 Rx nebulizer and compressor #1 each 09/13/19 Rx topiramate 50 mg PO BID 30 Days #60 tab 09/13/19 Rx Allergies Allergy/AdvReac Type Severity Reaction Status Date / Time Penicillins AdvReac Intermediate Vomiting Verified 09/10/19 18:46 Review of Systems Review of Systems Narrative: All other systems reviewed with the patient and are negative unless otherwise stated. Exam Vital Signs (past 8 hours): - 10/23/19 12:35 10/23/19 13:10 10/23/19 14:15 Temperature 97.4 F L Pulse Rate 113 H 86 90 Respiratory Rate 44 H 22 20 Blood Pressure 168/115 H Blood Pressure [Right Arm] Pulse Oximetry 92 10/23/19 15:58 10/23/19 17:10 Temperature 98.3 F Pulse Rate 110 H 119 H Respiratory Rate 18 119 H Blood Pressure 175/108 H Blood Pressure [Right Arm] 163/99 H Pulse Oximetry 92 93 Oxygen Delivery Method Room Air Oxygen Flow Rate 0 Narrative Exam Narrative: GENERAL APPEARANCE: Obese Well developed, well nourished, intermittently tearful, speaks in short sentences, gets short of breath with longer sentences. SKIN: Inspection of the skin reveals no rashes, ulcerations or petechiae. HEENT: Normocephalic atraumatic, extraocular muscles are intact, oropharynx is clear and mucous membranes are moist, neck is supple without adenopathy NECK: Supple and symmetric. There was no thyroid enlargement, and no tenderness, or masses were felt. CHEST: Normal AP diameter and normal contour without any kyphoscoliosis. LUNGS: Diffuse wheezing throughout all lung reyes, no rales or rhonchi bilaterally. CARDIOVASCULAR: Tachycardic with regular rhythm without any murmurs, gallops, rubs. Peripheral pulses were 2+ and symmetric. ABDOMEN: Soft and nontender with normal bowel sounds. No ascites was noted. Obese. MUSCULOSKELETAL: There was no tenderness or effusions noted. Muscle strength and tone were normal. EXTREMITIES: No cyanosis, clubbing or edema. Negative Sugey sign. NEUROLOGIC: Alert and oriented x 3. Gait was normal. Strength is +5/5 in the Upper Extremities and Lower Extremities Bilaterally. Sensation to touch was normal. Objective ECG Impression: Sinus tachycardia, without evidence of active ischemia. Imaging Chest x-ray: My impression: Increased lung volumes without evidence of acute cardiopulmonary process. There are no infiltrates. Labs Result Diagrams: 10/23/19 12:56 10/23/19 12:56 Labs: Laboratory Results - last 24 hr 10/23/19 10/23/19 10/23/19 12:56 12:56 12:56 WBC 14.0 H RBC 4.88 Hgb 16.1 H Hct 45.5 MCV 93.2 MCH 32.9 MCHC 35.3 RDW 14.1 Plt Count 298 Neut % (Auto) 73.5 Lymph % (Auto) 9.5 L [place] % (Auto) 3.5 Eos % (Auto) 13.1 H Baso % (Auto) 0.4 Neut # (Auto) 52605 H Lymph # (Auto) 1300 [place] # (Auto) 500 Eos # (Auto) 1800 H Baso # (Auto) 100 Sodium Potassium Chloride Carbon Dioxide BUN Creatinine Estimated GFR BUN/Creatinine Ratio Glucose Lactate 2.9 H Calcium Magnesium Total Bilirubin AST ALT Alkaline Phosphatase Total Protein Albumin Globulin Albumin/Globulin Ratio Procalcitonin < 0.05 HCG, Quant Chlamy pneumoniae PCR Adenovirus (PCR) B.parapertussis DNA PCR Coronavirus OC43 (PCR) Coronavirus HKU1 (PCR) Coronavirus 229E (PCR) Coronavirus NL63 (PCR) Human Metapneumovir PCR Influenza A (RT-PCR) Influenza Type A (PCR) Influenza B (RT-PCR) Influenza Type B (PCR) M. pneumoniae (PCR) Parainfluenza 1 (PCR) Parainfluenza 2 (PCR) Parainfluenza 3 (PCR) Parainfluenza 4 (PCR) RSV (PCR) Entero/Rhino (PCR) 10/23/19 10/23/19 10/23/19 12:56 12:56 12:56 WBC RBC Hgb Hct MCV MCH MCHC RDW Plt Count Neut % (Auto) Lymph % (Auto) [place] % (Auto) Eos % (Auto) Baso % (Auto) Neut # (Auto) Lymph # (Auto) [place] # (Auto) Eos # (Auto) Baso # (Auto) Sodium 139 Potassium 4.2 Chloride 107 Carbon Dioxide 22 BUN 6 L Creatinine 0.65 Estimated GFR > 60.0 BUN/Creatinine Ratio 9.2 Glucose 120 H Lactate Calcium 9.6 Magnesium 2.0 Total Bilirubin 0.8 AST 36 ALT 27 Alkaline Phosphatase 72 Total Protein 8.9 H Albumin 5.0 Globulin 3.9 Albumin/Globulin Ratio 1.3 Procalcitonin HCG, Quant < 2.4 Chlamy pneumoniae PCR Adenovirus (PCR) B.parapertussis DNA PCR Coronavirus OC43 (PCR) Coronavirus HKU1 (PCR) Coronavirus 229E (PCR) Coronavirus NL63 (PCR) Human Metapneumovir PCR Influenza A (RT-PCR) Flu a negative Influenza Type A (PCR) Influenza B (RT-PCR) Flu b negative Influenza Type B (PCR) M. pneumoniae (PCR) Parainfluenza 1 (PCR) Parainfluenza 2 (PCR) Parainfluenza 3 (PCR) Parainfluenza 4 (PCR) RSV (PCR) Entero/Rhino (PCR) 10/23/19 10/23/19 12:56 15:17 WBC RBC Hgb Hct MCV MCH MCHC RDW Plt Count Neut % (Auto) Lymph % (Auto) [place] % (Auto) Eos % (Auto) Baso % (Auto) Neut # (Auto) Lymph # (Auto) [place] # (Auto) Eos # (Auto) Baso # (Auto) Sodium Potassium Chloride Carbon Dioxide BUN Creatinine Estimated GFR BUN/Creatinine Ratio Glucose Lactate 4.4 H* Calcium Magnesium Total Bilirubin AST ALT Alkaline Phosphatase Total Protein Albumin Globulin Albumin/Globulin Ratio Procalcitonin HCG, Quant Chlamy pneumoniae PCR Not detected Adenovirus (PCR) Not detected B.parapertussis DNA PCR Not detected Coronavirus OC43 (PCR) Not detected Coronavirus HKU1 (PCR) Not detected Coronavirus 229E (PCR) Not detected Coronavirus NL63 (PCR) Not detected Human Metapneumovir PCR Not detected Influenza A (RT-PCR) Influenza Type A (PCR) Not detected Influenza B (RT-PCR) Influenza Type B (PCR) Not detected M. pneumoniae (PCR) Not detected Parainfluenza 1 (PCR) Not detected Parainfluenza 2 (PCR) Not detected Parainfluenza 3 (PCR) Not detected Parainfluenza 4 (PCR) Not detected RSV (PCR) Not detected Entero/Rhino (PCR) Not detected Assessment & Plan Assessment & Plan narrative: Kristin Barksdale is a 34 year old female with PMH of asthma, PTSD, and depression, and previous diabetes recently admitted about a month ago for asthma exacerbation who presented to the emergency room for shortness of breath for the past 2 days after running out of her daily inhaler 2 weeks ago. She is admitted under observation status for asthma exacerbation. 1. asthma exacerbation , Acute, present on admission - - Chest x-ray showed mildly hyperinflated lungs, but no acute infiltrates. Patient was given continuous albuterol, fluticasone inhaler, 125 mg of Solu-Medrol, DuoNeb, magnesium, and fluid bolus in the emergency room. These somewhat helped with her symptoms which she was still quite dyspneic on minimal exertion. -respiratory therapy eval and treat -continue albuterol as needed q.2 hours as needed -continue home fluticasone -continue prednisone 40 mg daily -respiratory panel was negative for infectious etiologies, and imaging as noted above is not consistent with any infectious process. Procalcitonin is negative. -will check a D-dimer, if positive will perform a CT angiogram to evaluate for PE. Will also check an ABG to evaluate for respiratory failure , acidosis, hypercarbia. 2. Elevated lactate, acute, present on admission -patient had presented with an elevated lactate during her last admission. She is not acidotic at this time based on her bicarb. Will check an ABG. -elevated lactate is likely in the setting of increased use of albuterol, and increasing level after continuous nebulizer here does fit this. -will continue IV fluids -will repeat lactate with morning labs 3. Hypertension, acute, present on admission -will resume home lisinopril at 10 mg b.i.d.. She is hypertensive here, but this is likely in the setting of not taking her chronic medications as she ran out 2 weeks ago. 4. History of diabetes type 2, present on admission. Patient had an A1c during her last admission of 4.9%. She did have hyperglycemia related to previous steroid use. -will check fingersticks a.c. HS with corresponding low-dose sliding scale -if she is euglycemic, fingersticks can likely be discontinued 5. Depression/PTSD, acute on chronic, present on admission -Patient had plan to reestablish care with her PCP in [place], however she finds it difficult to attend these. She is interested in finding a new primary care provider in the [place] area. -will further evaluate her thyroid function given worsening symptoms and weight gain, however these are likely in the setting of not taking her medications and depression. Code: Full Dispo: Patient is admitted under observation status as her stay is not likely to exceed 2 midnights. DVT: HSQ
[2019-10-23 18:21] LABS: Bacteria Urine None Seen
[2019-10-23 18:22] LABS: Appearance Urine UA CLEAR; Bilirubin Urine UA NEGATIVE (NEGATIVE); Color Urine UA YELLOW; Glucose Urine UA TRACE g/dL (Negative); Ketones Urine UA 1+ (NEGATIVE); Leukocyte Esterase Urine UA TRACE (NEGATIVE); Nitrite Urine UA NEGATIVE (Negative); Occult Blood Urine UA TRACE-LYSED (Negative); Protein Urine UA NEGATIVE (Negative); Urobilinogen Urine UA 0.2 E.U./dL (0.2)
[2019-10-23 18:25] LABS: pH Urine UA 5.5 (4.5-8.0)
[2019-10-23 18:27] LABS: RBC Urine 0-1/HPF (0-5/HPF); Squamous Epithelial Cell Urine 1-5 /HPF (0-5/HPF); WBC Urine 1-5/HPF (0-5/HPF)
[2019-10-23 18:28] LABS: Culture Indicated Urine Specimen Cultured
[2019-10-23] MEDS: ALBUTEROL 2.5 MG/3 ML NEB (ADULT) INH ×2 (18:36→22:09)
[2019-10-23 19:04] LABS: Fractionated Inspired Oxygen 45; HCO3 ABG 18 mmol/L (22-26); Oxygen Saturation ABG 98 % (95-100); PCO2 ABG 35.1 mmHg (35-45); PO2 ABG 119 mmHg (80-100); TCO2 ABG 19 mmol/L (21-31); pH ABG 7.31 (7.35-7.45)
[2019-10-23 19:06] LABS: D Dimer 331 ng/mL (<230)
[2019-10-23] MEDS: ACETAMINOPHEN 325 MG TABLET 650 MG PO (20:55)
[2019-10-23] MEDS: MONTELUKAST 10 MG TABLET PO (20:58)
[2019-10-23] MEDS: lisinopriL 10 MG TABLET PO (20:58)
[2019-10-23] MEDS: HEPARIN 5,000 UNIT/ML VIAL 5000 UNIT SUBCUT (20:59)
[2019-10-23] MEDS: TOPIRAMATE 25 MG TABLET 50 MG PO (21:06)
--- NOTE | 2019-10-23 22:16 | PC.NURSE ---
A&OX4. 92% RA. wheezy. HR tachy 100-115 at rest, 125bpm w/activity. IVF. oriented pt to the room. independent. call light in reach.
[2019-10-24] VITALS (9 sets, daily range): BP systolic 136–163; BP diastolic 89–101; PULSE 82–95; RESP 14–18; TEMP 36.3–36.9; O2SAT 92–96
[2019-10-24] MEDS: SODIUM CHLORIDE 0.9% 1,000 ML 125 ML IV (02:26)
[2019-10-24 05:54] LABS: Add Manual Diff / Slide Review NO; Basophils Absolute Auto 0 /uL (0-100); Basophils Percent Auto 0.2 % (0-2); Eosinophils Absolute Auto 0 /uL (0-450); Hematocrit 39.9 % (36-46); Hemoglobin 13.8 g/dL (12.0-16.0); Lymphocytes Absolute Auto 1000 /uL (1100-4500); Mean Corpuscular HGB Conc 34.6 % (30-36); Mean Corpuscular Hemoglobin 32.6 PG (26-34); Monocytes Absolute Auto 400 /uL (0-900); Monocytes Percent Auto 3.8 % (3-14); Neutrophils Absolute Auto 8700 /uL (1500-7000); Platelet Count 258 X10^3/uL (150-400); Red Blood Cell Count 4.24 X10^6/uL (4.0-5.2); White Blood Cell Count 10.1 X10^3/uL (4.5-11.0)
[2019-10-24 05:55] LABS: BUN Creatinine Ratio 12.1 (6-22); Blood Urea Nitrogen 8 mg/dL (7-17); Calcium 9.6 mg/dL (8.4-10.2); Carbon Dioxide 23 mmol/L (22-32); Chloride 110 mmol/L (98-107); Estimated Glomerular Filt Rate > 60.0 mL/min (>60); Glucose 154 mg/dL (70-100); HEMOLYSIS < 15 (0-50); Lactate (Lactic Acid) 1.2 mmol/L (0.7-2.1); Magnesium 2.4 mg/dL (1.6-2.3); Potassium 4.6 mmol/L (3.4-5.1); Sodium 139 mmol/L (137-145)
[2019-10-24] MEDS: PANTOPRAZOLE 40 MG TABLET PO (06:17)
[2019-10-24 06:31] LABS: TSH w/ Reflex to FT4 0.18 uIU/mL (0.47-4.68)
[2019-10-24 07:19] LABS: Free T4, Direct Thyroxine 1.06 ng/dL (0.78-2.19)
[2019-10-24] MEDS: BUTALB/APAP/CAFFEINE 50/325/40 TABLET 1 EACH PO ×2 (08:15→19:35)
[2019-10-24] MEDS: FLUTICASONE 110MCG HFA 120 PUFF INH ×2 (08:34→18:53)
[2019-10-24] MEDS: TOPIRAMATE 25 MG TABLET 50 MG PO ×2 (08:35→21:01)
[2019-10-24] MEDS: DULOXETINE 30 MG CAPSULE 60 MG PO (08:35)
[2019-10-24] MEDS: lisinopriL 10 MG TABLET PO (08:35)
[2019-10-24] MEDS: predniSONE 20 MG TABLET 40 MG PO (08:35)
[2019-10-24] MEDS: HEPARIN 5,000 UNIT/ML VIAL 5000 UNIT SUBCUT ×2 (08:35→21:01)
[2019-10-24] MEDS: ALBUTEROL 2.5 MG/3 ML NEB (ADULT) INH ×2 (10:31→18:53)
--- NOTE | 2019-10-24 12:20 | PM.PN.1 ---
Subjective Subjective Date Patient Seen: 10/24/19 Interval history: Patient is a 34-year-old female who was admitted to the hospital for an acute exacerbation of asthma. She reports her breathing has improved. However she is markedly short of breath with minimal activity. In addition the patient becomes tachycardic with minimal movement. She has significant wheezing. Her peak flow is averaging around 175. Exam Vital Signs (past 8 hours): - 10/24/19 05:52 10/24/19 07:24 10/24/19 10:31 Temperature 97.5 F L 97.3 F L Pulse Rate 92 H 95 H 82 Respiratory Rate 16 16 18 Blood Pressure 156/95 H 150/101 H Pulse Oximetry 96 95 95 Oxygen Delivery Method Room Air Oxygen Flow Rate 0 Narrative Exam Narrative: Pleasant female short of breath Objective Labs Result Diagrams: 10/24/19 05:30 10/24/19 05:30 Labs: Laboratory Results - last 24 hr 10/23/19 10/23/19 10/23/19 12:56 12:56 12:56 WBC 14.0 H RBC 4.88 Hgb 16.1 H Hct 45.5 MCV 93.2 MCH 32.9 MCHC 35.3 RDW 14.1 Plt Count 298 Neut % (Auto) 73.5 Lymph % (Auto) 9.5 L [place] % (Auto) 3.5 Eos % (Auto) 13.1 H Baso % (Auto) 0.4 Neut # (Auto) 86413 H Lymph # (Auto) 1300 [place] # (Auto) 500 Eos # (Auto) 1800 H Baso # (Auto) 100 D-Dimer ABG pH ABG pCO2 ABG pO2 ABG HCO3 ABG Total CO2 ABG O2 Saturation ABG Base Excess FiO2 Sodium Potassium Chloride Carbon Dioxide BUN Creatinine Estimated GFR BUN/Creatinine Ratio Glucose Lactate 2.9 H Calcium Magnesium Total Bilirubin AST ALT Alkaline Phosphatase Total Protein Albumin Globulin Albumin/Globulin Ratio Procalcitonin < 0.05 TSH Free T4 HCG, Quant Urine Color Urine Appearance Urine pH Ur Specific [place] Urine Protein Urine Glucose (UA) Urine Ketones Urine Occult Blood Urine Nitrate Urine Bilirubin Urine Urobilinogen Ur Leukocyte Esterase Urine RBC Urine WBC Ur Squamous Epith Cells Urine Bacteria Ur Culture Indicated? Chlamy pneumoniae PCR Adenovirus (PCR) B.parapertussis DNA PCR Coronavirus OC43 (PCR) Coronavirus HKU1 (PCR) Coronavirus 229E (PCR) Coronavirus NL63 (PCR) Human Metapneumovir PCR Influenza A (RT-PCR) Influenza Type A (PCR) Influenza B (RT-PCR) Influenza Type B (PCR) M. pneumoniae (PCR) Parainfluenza 1 (PCR) Parainfluenza 2 (PCR) Parainfluenza 3 (PCR) Parainfluenza 4 (PCR) RSV (PCR) Entero/Rhino (PCR) 10/23/19 10/23/19 10/23/19 12:56 12:56 12:56 WBC RBC Hgb Hct MCV MCH MCHC RDW Plt Count Neut % (Auto) Lymph % (Auto) [place] % (Auto) Eos % (Auto) Baso % (Auto) Neut # (Auto) Lymph # (Auto) [place] # (Auto) Eos # (Auto) Baso # (Auto) D-Dimer ABG pH ABG pCO2 ABG pO2 ABG HCO3 ABG Total CO2 ABG O2 Saturation ABG Base Excess FiO2 Sodium 139 Potassium 4.2 Chloride 107 Carbon Dioxide 22 BUN 6 L Creatinine 0.65 Estimated GFR > 60.0 BUN/Creatinine Ratio 9.2 Glucose 120 H Lactate Calcium 9.6 Magnesium 2.0 Total Bilirubin 0.8 AST 36 ALT 27 Alkaline Phosphatase 72 Total Protein 8.9 H Albumin 5.0 Globulin 3.9 Albumin/Globulin Ratio 1.3 Procalcitonin TSH Free T4 HCG, Quant < 2.4 Urine Color Urine Appearance Urine pH Ur Specific [place] Urine Protein Urine Glucose (UA) Urine Ketones Urine Occult Blood Urine Nitrate Urine Bilirubin Urine Urobilinogen Ur Leukocyte Esterase Urine RBC Urine WBC Ur Squamous Epith Cells Urine Bacteria Ur Culture Indicated? Chlamy pneumoniae PCR Adenovirus (PCR) B.parapertussis DNA PCR Coronavirus OC43 (PCR) Coronavirus HKU1 (PCR) Coronavirus 229E (PCR) Coronavirus NL63 (PCR) Human Metapneumovir PCR Influenza A (RT-PCR) Flu a negative Influenza Type A (PCR) Influenza B (RT-PCR) Flu b negative Influenza Type B (PCR) M. pneumoniae (PCR) Parainfluenza 1 (PCR) Parainfluenza 2 (PCR) Parainfluenza 3 (PCR) Parainfluenza 4 (PCR) RSV (PCR) Entero/Rhino (PCR) 10/23/19 10/23/19 10/23/19 12:56 12:56 15:17 WBC RBC Hgb Hct MCV MCH MCHC RDW Plt Count Neut % (Auto) Lymph % (Auto) [place] % (Auto) Eos % (Auto) Baso % (Auto) Neut # (Auto) Lymph # (Auto) [place] # (Auto) Eos # (Auto) Baso # (Auto) D-Dimer 331 H ABG pH ABG pCO2 ABG pO2 ABG HCO3 ABG Total CO2 ABG O2 Saturation ABG Base Excess FiO2 Sodium Potassium Chloride Carbon Dioxide BUN Creatinine Estimated GFR BUN/Creatinine Ratio Glucose Lactate 4.4 H* Calcium Magnesium Total Bilirubin AST ALT Alkaline Phosphatase Total Protein Albumin Globulin Albumin/Globulin Ratio Procalcitonin TSH Free T4 HCG, Quant Urine Color Urine Appearance Urine pH Ur Specific [place] Urine Protein Urine Glucose (UA) Urine Ketones Urine Occult Blood Urine Nitrate Urine Bilirubin Urine Urobilinogen Ur Leukocyte Esterase Urine RBC Urine WBC Ur Squamous Epith Cells Urine Bacteria Ur Culture Indicated? Chlamy pneumoniae PCR Not detected Adenovirus (PCR) Not detected B.parapertussis DNA PCR Not detected Coronavirus OC43 (PCR) Not detected Coronavirus HKU1 (PCR) Not detected Coronavirus 229E (PCR) Not detected Coronavirus NL63 (PCR) Not detected Human Metapneumovir PCR Not detected Influenza A (RT-PCR) Influenza Type A (PCR) Not detected Influenza B (RT-PCR) Influenza Type B (PCR) Not detected M. pneumoniae (PCR) Not detected Parainfluenza 1 (PCR) Not detected Parainfluenza 2 (PCR) Not detected Parainfluenza 3 (PCR) Not detected Parainfluenza 4 (PCR) Not detected RSV (PCR) Not detected Entero/Rhino (PCR) Not detected 10/23/19 10/23/19 10/24/19 18:15 18:55 05:30 WBC 10.1 RBC 4.24 Hgb 13.8 Hct 39.9 MCV 94.0 MCH 32.6 MCHC 34.6 RDW 14.0 Plt Count 258 Neut % (Auto) 86.0 H Lymph % (Auto) 10.0 L [place] % (Auto) 3.8 Eos % (Auto) 0.0 L Baso % (Auto) 0.2 Neut # (Auto) 8700 H Lymph # (Auto) 1000 L [place] # (Auto) 400 Eos # (Auto) 0 Baso # (Auto) 0 D-Dimer ABG pH 7.31 L ABG pCO2 35.1 ABG pO2 119 H ABG HCO3 18 L ABG Total CO2 19 L ABG O2 Saturation 98 ABG Base Excess -9.0 L FiO2 45 Sodium Potassium Chloride Carbon Dioxide BUN Creatinine Estimated GFR BUN/Creatinine Ratio Glucose Lactate Calcium Magnesium Total Bilirubin AST ALT Alkaline Phosphatase Total Protein Albumin Globulin Albumin/Globulin Ratio Procalcitonin TSH Free T4 HCG, Quant Urine Color Yellow Urine Appearance Clear Urine pH 5.5 Ur Specific [place] 1.020 Urine Protein Negative Urine Glucose (UA) Trace H Urine Ketones 1+ H Urine Occult Blood Trace-lysed Urine Nitrate Negative Urine Bilirubin Negative Urine Urobilinogen 0.2 Ur Leukocyte Esterase Trace H Urine RBC 0-1/hpf Urine WBC 1-5/hpf Ur Squamous Epith Cells 1-5 /hpf Urine Bacteria None seen Ur Culture Indicated? Specimen cultured Chlamy pneumoniae PCR Adenovirus (PCR) B.parapertussis DNA PCR Coronavirus OC43 (PCR) Coronavirus HKU1 (PCR) Coronavirus 229E (PCR) Coronavirus NL63 (PCR) Human Metapneumovir PCR Influenza A (RT-PCR) Influenza Type A (PCR) Influenza B (RT-PCR) Influenza Type B (PCR) M. pneumoniae (PCR) Parainfluenza 1 (PCR) Parainfluenza 2 (PCR) Parainfluenza 3 (PCR) Parainfluenza 4 (PCR) RSV (PCR) Entero/Rhino (PCR) 10/24/19 10/24/19 10/24/19 05:30 05:30 05:30 WBC RBC Hgb Hct MCV MCH MCHC RDW Plt Count Neut % (Auto) Lymph % (Auto) [place] % (Auto) Eos % (Auto) Baso % (Auto) Neut # (Auto) Lymph # (Auto) [place] # (Auto) Eos # (Auto) Baso # (Auto) D-Dimer ABG pH ABG pCO2 ABG pO2 ABG HCO3 ABG Total CO2 ABG O2 Saturation ABG Base Excess FiO2 Sodium 139 Potassium 4.6 Chloride 110 H Carbon Dioxide 23 BUN 8 Creatinine 0.66 Estimated GFR > 60.0 BUN/Creatinine Ratio 12.1 Glucose 154 H Lactate 1.2 Calcium 9.6 Magnesium 2.4 H Total Bilirubin AST ALT Alkaline Phosphatase Total Protein Albumin Globulin Albumin/Globulin Ratio Procalcitonin TSH 0.18 L Free T4 1.06 HCG, Quant Urine Color Urine Appearance Urine pH Ur Specific [place] Urine Protein Urine Glucose (UA) Urine Ketones Urine Occult Blood Urine Nitrate Urine Bilirubin Urine Urobilinogen Ur Leukocyte Esterase Urine RBC Urine WBC Ur Squamous Epith Cells Urine Bacteria Ur Culture Indicated? Chlamy pneumoniae PCR Adenovirus (PCR) B.parapertussis DNA PCR Coronavirus OC43 (PCR) Coronavirus HKU1 (PCR) Coronavirus 229E (PCR) Coronavirus NL63 (PCR) Human Metapneumovir PCR Influenza A (RT-PCR) Influenza Type A (PCR) Influenza B (RT-PCR) Influenza Type B (PCR) M. pneumoniae (PCR) Parainfluenza 1 (PCR) Parainfluenza 2 (PCR) Parainfluenza 3 (PCR) Parainfluenza 4 (PCR) RSV (PCR) Entero/Rhino (PCR) Assessment & Plan Assessment & Plan narrative: 1. Acute asthma exacerbation, still highly symptomatic -continue steroid inhaler -continue oral present -continue peak flow daily -Home wheezing improving clinically better 2. GERD -continue proton pump inhibitor 3. Hypertension -continue lisinopril Anticipate discharge home in 1-2 days
--- NOTE | 2019-10-24 12:34 | PC.NURSE ---
Day shift: Dr Schwartz made aware of Pt's elevated BP 150/100 at this time. Will continue to monitor. Call light in reach. Denies pain.
--- NOTE | 2019-10-24 15:22 | CM.DANOTE ---
Patient is a 34 year old female who was a READMIT on 10/23/19 for SOB, cough. Pt has [employer] and [facility] for insurance and her PCP is Dr. Domonique Puga in [place]. EMR was reviewed. Per MD, pt wheezy and tacky and has hx of asthma, depression, and PTSD. Pt not medically stable to d/c yet today. SW met bedside with pt and explained role and pt confirms that she was admitted about a month ago for similar but had some insurance issues and was able to get re-enrolled with [employer] at last admit but pharmacy did not have her insurance info and therefore her meds not filled which contributed to her readmit. Pt confirms that she still lives with sig sammy Crowe in their RV and since February they have stayed at [facility] for 3 weeks and then an park in [place] for 3 weeks. Pt does not work and not enrolled in school but her S.O. works near [employer]. Pt confirms that her parents who are supportive live in [place] and her PCP is Dr. Domonique Puga in [place]. Pt is quite tearful during discussion and SW inquired if she is connected with mental health services and she states she was established with [facility] last year for counseling and Psychiatrist but was having difficulty getting to her appointments as pt does not drive. Pt is unsure if she has Medicaid transport benefits and as never accessed them. Pt states she would be agreeable with outpt mental health resources but is worried that her mental health and anxiety will keep her from following through with scheduled appointments but would be agreeable with Medicaid transport for appointments. Pt denies any suicidal ideation or plan but states that she is very anxious, depressed, having difficulty with following through with ADL's and inquired about Inpt MH tx. Pt denies any hx of Inpt MH tx or Crisis Respite and SW discussed both resources and that for either she would need to be medically stable for either and for Inpt MH tx she would need to meet criteria and find an accepting facility. SW called Medicaid and confirmed that she has Medicaid transport benefits and printed off the information and number to call that she can use for scheduled doctor or mental health appointments. Pt agreeable with waiting until she is medically stable for d/c to see how she is feeling and if she feels she could benefit from outpt, crisis respite, or Inpt MH tx for stabilization and med management for anxiety/depression/PTSD/ life stress. Pt could benefit from further SW assessment when closer to discharge. SW provided pt with the [facility] provider list and Medicaid transport info. Plan: SW to follow tomorrow to determine d/c needs at discharge and likely SW Consult to determine mental health needs. GLENDY Moscoso Discharge Planning/Care Management CM Discharge Assessment Start: 10/24/19 15:17 Freq: Status: Active Protocol: Document 10/24/19 15:17 BF (Rec: 10/24/19 15:22 BF [id number]) Discharge Planning Assessment Assigned Photostatic Copy Maker KATIA Costa Advance Directives? No Advance Directives on File No History Provided By Patient,Medical Record Has Patient been admitted in last 30 Yes days? Comment Last admit about a month ago and discharged home Prior Living Arrangements Mobile home Household Members significant other Type of transporation used prior to Relies on Others admit Independent with ADL's Yes: mostly Is patient alert and oriented? Yes Needs Assistance With Managing Medications,Home Chores / Shopping Caregiver for Another No Comment Likely home, maybe services Barriers to Discharge No Discharge Plan Home Transportation Arrangement Mother or significant other Referrals Initiated Other Additional Comment Patient could benefit from mental health resources Whiteboard Updated in Patient Room with Yes name and ext. # of Photostatic Copy Maker Review Status In Process Please Provide Date Initial DC 10/24/19 Assessment Was Performed Next Review Type Continued Stay Review
[2019-10-24] MEDS: ONDANSETRON 4 MG/2 ML INJ IV ×2 (15:50→23:52)
[2019-10-24] MEDS: INSULIN ASPART 100 UNIT/ML INSULN PEN SUBCUT (17:43)
[2019-10-24] MEDS: MONTELUKAST 10 MG TABLET PO (21:02)
[2019-10-25] VITALS (7 sets, daily range): BP systolic 123–132; BP diastolic 77–93; PULSE 74–91; RESP 14–18; TEMP 36.4–36.7; O2SAT 93–98
[2019-10-25 05:15] LABS: Add Manual Diff / Slide Review NO; Basophils Absolute Auto 100 /uL (0-100); Basophils Percent Auto 0.6 % (0-2); Eosinophils Absolute Auto 100 /uL (0-450); Eosinophils Percent Auto 0.8 % (2-4); Hematocrit 40.2 % (36-46); Lymphocytes Absolute Auto 2600 /uL (1100-4500); Lymphocytes Percent Auto 24.7 % (25-40); Mean Corpuscular HGB Conc 34.9 % (30-36); Mean Corpuscular Hemoglobin 32.9 PG (26-34); Mean Corpuscular Volume 94.5 fL (80-100); Monocytes Absolute Auto 600 /uL (0-900); Monocytes Percent Auto 5.7 % (3-14); Neutrophils Absolute Auto 7300 /uL (1500-7000); Neutrophils Percent Auto 68.2 % (50-75); Platelet Count 268 X10^3/uL (150-400); Red Blood Cell Count 4.26 X10^6/uL (4.0-5.2); Red Cell Distribution Width 13.9 % (11.6-14.8); White Blood Cell Count 10.7 X10^3/uL (4.5-11.0)
[2019-10-25 05:21] LABS: BUN Creatinine Ratio 20.7 (6-22); Blood Urea Nitrogen 18 mg/dL (7-17); Calcium 9.4 mg/dL (8.4-10.2); Carbon Dioxide 26 mmol/L (22-32); Chloride 106 mmol/L (98-107); Estimated Glomerular Filt Rate > 60.0 mL/min (>60); Glucose 105 mg/dL (70-100); HEMOLYSIS < 15 (0-50); Magnesium 2.2 mg/dL (1.6-2.3); Potassium 3.7 mmol/L (3.4-5.1); Sodium 138 mmol/L (137-145)
[2019-10-25] MEDS: PANTOPRAZOLE 40 MG TABLET PO (05:22)
[2019-10-25] MEDS: ALBUTEROL HFA 60 PUFF/8 GM INH INH ×2 (05:24→08:20)
[2019-10-25] MEDS: FLUTICASONE 110MCG HFA 120 PUFF INH (05:25)
--- NOTE | 2019-10-25 08:03 | P.DS_ITS ---
History of Present Illness History of Present Illness Chief complaint: SOB, cough Narrative: Kristin Barksdale is a 34 year old female with PMH of asthma, PTSD, and depression, and previous diabetes recently admitted about a month ago for asthma exacerbation who presented to the emergency room for shortness of breath for the past 2 days. She had been doing well after discharge, but ran out of her medication as she was unable to see her primary care doctor in [place] due to issues with travel. She has been without her fluticasone inhaler for the past 2 weeks. Starting 2 days ago she has become more short of breath, and dyspneic on exertion. She is unable to walk to the bathroom without getting short of jihan ath. She has been using her albuterol inhaler, and nebulizer approximately every 4 hours. These help but do not completely resolve her symptoms. She presented today due to even worsening short of breath, to the point where she feels like she could breathe at all. She denies recent fevers, but does report hot flashes and chills over the past couple of weeks. She has been short of breath and does have a cough, but these have been fairly chronic. She denies any sick contacts, and no one has been sick around her. Her usual peak flow is around 160, however recently it is been much lower. She denies any recent travel. She has been somewhat immobilized by the shortness of breath. She also endorses a 40 lb weight gain over the past year, and she does report some worsening PTSD and depression because she ran out of her medications 2 weeks ago. In the emergency room, the patient was tachypneic, tachycardic, and hypertensive. She was very dyspneic, but saturating well on room air. She was afebrile. EKG showed sinus tachycardia without evidence of ischemia. Lab evaluation was notable for a leukocytosis to 14, lactic acid of 2.9 on admission the increased to 4.4 after continuous albuterol. Patient had a negative hCG, negative procalcitonin, and chemistries were unremarkable. Chest x-ray showed mildly hyperinflated lungs, but no acute infiltrates. Patient was given contin uous albuterol, fluticasone inhaler, 125 mg of Solu-Medrol, DuoNeb, magnesium, and fluid bolus in the emergency room. These somewhat helped with her symptoms which she was still quite dyspneic on minimal exertion. She was admitted under observation status for asthma exacerbation. Discharge Providers Provider Date of admission: 10/23/19 16:38 Discharge Date: 10/25/19 Consults: 10/23/19 12:50 Consult to Respiratory Therapy Evaluate & Treat Comment: Physician Instructions: Evaluate and treat Discharge provider: Jose Lockhart MD Summary Hospital Course Discharge Diagnosis: 1. Acute asthma exacerbation Hospital Course: Patient is a 34 year-old female with history of asthma who was admitted due to asthma exacerbation after having run out of her steroid inhaler for the previous 2 weeks. She was treated with steroids, nebulizer treatment and has improving course. On exam day of discharge she is comfortable at rest but has mild bilateral wheezing. She feels able to manage at home. She will follow-up with PCP. Status at Discharge Cognitive/behavioral status at discharge: oriented Functional status at discharge: independent ambulation Overall status at discharge: patient is progressing back to baseline Time Spent with Patient Time spent: Less than 30 minutes Exam Vital Signs (past 8 hours): - 10/25/19 03:28 10/25/19 05:31 Temperature 98.0 F Pulse Rate 91 H Respiratory Rate 18 Blood Pressure 130/90 Pulse Oximetry 93 96 Oxygen Delivery Method Room Air Oxygen Flow Rate 0 Objective Labs Result Diagrams: 10/25/19 04:55 10/25/19 04:55 Labs: Laboratory Results - last 24 hr 10/25/19 10/25/19 04:55 04:55 WBC 10.7 RBC 4.26 Hgb 14.0 Hct 40.2 MCV 94.5 MCH 32.9 MCHC 34.9 RDW 13.9 Plt Count 268 Neut % (Auto) 68.2 Lymph % (Auto) 24.7 L [place] % (Auto) 5.7 Eos % (Auto) 0.8 L Baso % (Auto) 0.6 Neut # (Auto) 7300 H Lymph # (Auto) 2600 [place] # (Auto) 600 Eos # (Auto) 100 Baso # (Auto) 100 Sodium 138 Potassium 3.7 Chloride 106 Carbon Dioxide 26 BUN 18 H Creatinine 0.87 Estimated GFR > 60.0 BUN/Creatinine Ratio 20.7 Glucose 105 H Calcium 9.4 Magnesium 2.2 Discharge Plan Discharge Plan Patient Disposition: Home Discharge orders & Medications Prescriptions: New prednisone 20 mg tablet 40 mg PO DAILY 5 Days Qty: 10 RF: 0 Continued Flovent HFA 110 mcg/actuation Hfa Aerosol Inhaler 1 puff INH RTBID 30 Days Qty: 10.6 RF: 0 esomeprazole magnesium 40 mg capsule,delayed release(DR/EC) 40 mg PO DAILY 30 Days Qty: 30 RF: 0 lisinopril 10 mg tablet 10 mg PO BID 30 Days Qty: 60 RF: 0 montelukast 10 mg tablet 10 mg PO BEDTIME 30 Days Qty: 30 RF: 0 albuterol sulfate [ProAir HFA] 90 mcg/actuation HFA aerosol inhaler 2 puff INHALATION Q4HR PRN (Reason: Wheezing) 30 Days Qty: 18 RF: 0 topiramate 50 mg tablet 50 mg PO BID 30 Days Qty: 60 RF: 0 duloxetine 60 mg capsule,delayed release(DR/EC) 60 mg PO DAILY 30 Days Qty: 30 RF: 0 (DME) nebulizer and compressor Device See Rx Instructions .ROUTE .MEDSUPPLY Qty: 1 RF: 0 albuterol sulfate 2.5 mg /3 mL (0.083 %) solution for nebulization 2.5 mg INHALATION Q4-6H PRN (Reason: shortness of breath or wheezing) Qty: 75 RF: 0 Diet/Activity/Treatments Diet: Diet as Tolerated
[2019-10-25] MEDS: lisinopriL 20 MG TABLET 40 MG PO (08:53)
[2019-10-25] MEDS: predniSONE 20 MG TABLET 40 MG PO (08:53)
[2019-10-25] MEDS: DULOXETINE 30 MG CAPSULE 60 MG PO (08:53)
[2019-10-25] MEDS: TOPIRAMATE 25 MG TABLET 50 MG PO (08:53)
[2019-10-25] MEDS: ALBUTEROL 2.5 MG/3 ML NEB (ADULT) INH ×2 (09:39→14:06)
[2019-10-25] MEDS: ONDANSETRON 4 MG ODT SL (11:54)
--- NOTE | 2019-10-25 14:37 | CM.DPC ---
DCP: continued: case received, d/c to home order noted this morning by Dr. Lockhart. GLADYS Grace confirms pt's partner Sebastien will be here momentarily.
== END 2019-10-25 15:25 | disposition home or self-care (01) | DRG 141 ==
LOC: ED 16:36 → AC 10-24 06:58
PROVIDERS: Internal Medicine Cardiovascular Disease; Admitting Provider Internal Medicine; Emergency Provider Nurse Practitioner Family; Visit Provider Internal Medicine
DX: J45.901 Unspecified asthma with (acute) exacerbation (principal); E66.01 Morbid (severe) obesity due to excess calories; J96.01 Acute respiratory failure with hypoxia; T49.1X6A Underdosing of antipruritics, initial encounter; Z91.138 Patient's unintentional underdosing of medication regimen for other reason; Z68.41 Body mass index [BMI] 40.0-44.9, adult; K21.9 Gastro-esophageal reflux disease without esophagitis; F43.10 Post-traumatic stress disorder, unspecified; F32.9 Major depressive disorder, single episode, unspecified; F17.210 Nicotine dependence, cigarettes, uncomplicated; I10 Essential (primary) hypertension
CPT/HCPCS: 36415; 36600; 71045; 80048; 80053; 81001; 81003; 82805; 82962; 83605; 83735; 84145; 84439; 84443; 84702; 85025; 85379; 87040; 87086; 87502; 87633; 93005; 94150; 94640; 94760; 94762; 96365; 96375; 99284; J1644; J2405; J2930; J7613